=== PATIENT | male | born 1960 | race African-American/Black ===

== ENCOUNTER 2018-10-03 11:32 | Inpatient (IN) | payer OTHER ==
[2018-10-03 12:23] VITALS: BMI 25.8
--- NOTE | 2018-10-03 13:43 | HP ---
CIWA Score Nausea/Vomitin Muscle Tremors: 2 Anxiety: 2 Agitation: 2 Paroxysmal Sweats: 1-Minimal Palms Moist Orientation: 0-Oriented Tacttile Disturbances: 1-Very Mild Itch/Numbness Auditory Disturbances: 1-Very Mild Visual Disturbances: 0-None Headache: 2-Mild CIWA-Ar Total Score: 13 - Admission Criteria [facility]ASAS Guidelines: Admission for Medically Managed Detox: Requires at least one of the followin. CIWA greater than 12 2. Seizures within the past 24 hours 3. Delirium tremens within the past 24 hours 4. Hallucinations within the past 24 hours 5. Acute intervention needed for co occurring medical disorder 6. Acute intervention needed for co occurring psychiatric disorder 7. Severe withdrawal that cannot be handled at a lower level of care (continued vomiting, continued diarrhea, abnormal vital signs) requiring intravenous medication and/or fluids 8. Admission ROS [facility] - HPI Chief Complaint: i need help to stop drinking alcohol,heroin,on suboxone 8 mgs/2mgs tid Allergies/Adverse Reactions: Allergies Allergy/AdvReac Type Severity Reaction Status Date / Time No Known Allergies Allergy Verified 10/03/18 14:30 History of Present Illness: this 58 years old male with alcohol dependence,heroin abused,on suboxone 8mgs/2 mg tid , i stop showed last filled prescription 09/21/18 60 tab for 20 days syncope today hepatitis c since [address] [facility] this morning schizophrenia no medication last medication 18 months ago longest period of sobriety 10 years plan for out patient program after detox nicotine dependence 15 cigarette/day requesting nicotine patch and gum Exam Limitations: No Limitations - Ebola screening Have you traveled outside of the country in the last 21 days: No (N) Have you had contact with anyone from an Ebola affected area: No Have you been sick,other than usual withdrawal symptoms: No Do you have a fever: No - Review of Systems Constitutional: Night Sweats, Weight Stable, Unintentional Wgt. Loss, Unexplained wgt Loss, Other EENT: reports: Nose Congestion Respiratory: reports: No Symptoms reported Cardiac: reports: No Symptoms Reported GI: reports: Nausea, Poor Appetite, Abdominal cramping : reports: No Symptoms Reported Musculoskeletal: reports: Back Pain, Joint Pain, Muscle Pain Integumentary: reports: Dryness Neuro: reports: Headache, Tremors Endocrine: reports: No Symptoms Reported Hematology: reports: No Symptoms Reported Psychiatric: reports: No Sypmtoms Reported, Judgement Intact, Mood/Affect Appropiate, Orientated x3, Agitated, Anxious, other (schizophrenia) Patient History - Patient Medical History Hx Anemia: No Hx Asthma: No Hx Chronic Obstructive Pulmonary Disease (COPD): No Hx Cancer: No Hx Cardiac Disorders: No Hx Congestive Heart Failure: No Hx Hypertension: No Hx Hypercholesterolemia: No Hx Pacemaker: No HX Cerebrovascular Accident: No Hx Seizures: No Hx Dementia: No Hx Diabetes: No Hx Gastrointestinal Disorders: No Hx Liver Disease: No Hx Genitourinary Disorders: No Hx Sexually Transmitted Disorders: Yes (gonorrhea in 1979) Hx Renal Disease (ESRD): No Hx Thyroid Disease: No Hx Human Immunodeficiency Virus (HIV): No (last 2018 negative) Hx Hepatitis C: Yes Hx Depression: No Hx Suicide Attempt: No Hx Bipolar Disorder: No Hx Schizophrenia: Yes (no med) Other Medical History: no suicidal,no homicidal,low back pain sciatica,cane ambulation - Patient Surgical History Past Surgical History: Yes Hx Neurologic Surgery: No Hx Cataract Extraction: No Hx Cardiac Surgery: No Hx Lung Surgery: No Hx Breast Surgery: No Hx Breast Biopsy: No Hx Abdominal Surgery: No Hx Appendectomy: No Hx Cholecystectomy: No Hx Genitourinary Surgery: No Hx Section: No Hx Orthopedic Surgery: No Other Surgical History: repair of tendon of left thumb in 2009 unable to do flexion of left thumb Anesthesia Reaction: No - PPD History Previous Implant?: Yes Documented Results: Negative w/o proof Date: 07/08/13 Results: 0mm PPD to be Administered?: Yes - Smoking Cessation Smoking history: Current every day smoker Have you smoked in the past 12 months: Yes Aproximately how many cigarettes per day: 10 Cigars Per Day: 0 Hx Chewing Tobacco Use: No Initiated information on smoking cessation: Yes 'Breaking Loose' booklet given: 10/03/18 - Substance & Tx. History Hx Alcohol Use: Yes Hx Substance Use: Yes Substance Use Type: Alcohol, Heroin Hx Substance Use Treatment: Yes (arc in 2017) - Substances Abused Alcohol Route: Oral Frequency: Daily Amount used: 8 of 24 ozs of beer Age of first use: 14 Date of Last Use: 10/02/18 Heroin Route: Inhalation Frequency: Daily Amount used: 5 to 8 bags Age of first use: 20 Date of Last Use: 10/04/18 Family Disease History - Family Disease History Family Disease History: Other: Father (alcohol ) Admission Physical Exam [facility] - Vital Signs Vital Signs: Vital Signs - 24 hr 10/03/18 12:08 Temperature 98.6 F Pulse Rate 77 Respiratory 17 Rate Blood Pressure 125/77 - Physical General Appearance: Yes: Moderate Distress, Tremorous, Sweating, Anxious HEENTM: Yes: Normal ENT Inspection, HERLINDA, Pharynx Normal, Other (no teeth ,no denture) Respiratory: Yes: Lungs Clear, Normal Breath Sounds, No Respiratory Distress Neck: Yes: Within Normal Limits, Supple, Trachea in good position Breast: Yes: Within Normal Limits Cardiology: Yes: Within Normal Limits, Regular Rhythm, Regular Rate, S1, S2 Abdominal: Yes: Within Normal Limits, Normal Bowel Sounds, Non Tender, Soft Genitourinary: Yes: Within Normal Limits Musculoskeletal: Yes: Back pain, Other (low back pain scitica) Extremities: Yes: Tremors Neurological: Yes: furniture salesperson II-XII NML intact, Fully Oriented, Alert, Motor Strength 5/5 Integumentary: Yes: Dry Lymphatic: Yes: Within Normal Limits - Diagnostic (1) Alcohol dependence with uncomplicated withdrawal Current Visit: Yes Status: Acute (2) Heroin abuse Current Visit: Yes Status: Acute (3) Weight decreased Current Visit: No Status: Active (4) Hepatitis C Current Visit: Yes Status: Acute (5) Schizophrenia Current Visit: Yes Status: Acute (6) Encounter for monitoring Suboxone maintenance therapy Current Visit: Yes Status: Acute (7) Nicotine dependence Current Visit: Yes Status: Acute (8) No natural teeth Current Visit: Yes Status: Acute (9) Sciatica Current Visit: Yes Status: Acute (10) Use of cane as ambulatory aid Current Visit: Yes Status: Acute Cleared for Admission [facility] - Detox or Rehab [facility] Level of Care: Medically Managed Detox Regimen/Protocol: Librium [facility] Breath Alcohol Content Breath Alcohol Content: 0 Urine Drug Screen - Results Drug Screen Negative: No Urine Drug Screen Results: THC-Marijuana, TAMIKA-Cocaine, OPI-Opiates, MET- Methamphetamine, BZO-Benzodiazepines, MTD-Methadone, FEN-Fentanyl, BUP-Suboxone Inpatient Rehab Admission - Rehab Decision to Admit Inpatient rehab admission?: No
[2018-10-03] MEDS ORDERED: MAGNESIUM CITRATE 300 ML BOTTLE PO PRN (14:10)
[2018-10-03] MEDS ORDERED: hydrOXYzine PAMOATE 25 MG CAPSULE (FP) PO PRN (14:10)
[2018-10-03] MEDS ORDERED: MAGNESIUM HYDROX 2400MG/30ML ORAL SUSPENSION 30 ML CUP PO PRN (14:10)
[2018-10-03] MEDS ORDERED: MENTHOL/PHENOL 1 EACH UD MM PRN (14:10)
[2018-10-03] MEDS ORDERED: MAG HYDROX/AL HYDROX/SIMETH 30 ML UNIT-DOSE CUP PO PRN (14:10)
[2018-10-03] MEDS ORDERED: BISMUTH SUBSALICYLATE 524 MG/30 ML UD PO PRN (14:10)
[2018-10-03] MEDS ORDERED: IBUPROFEN 400 MG TABLET (FP) PO PRN (14:10)
[2018-10-03] MEDS ORDERED: ACETAMINOPHEN 325 MG TABLET (FP) PO PRN ×2 (14:10)
[2018-10-03] MEDS ORDERED: MELATONIN 5 MG TABLETS PO PRN (14:10)
[2018-10-03] MEDS ORDERED: chlordiazePOXIDE HCL 25 MG CAPSULE PO PRN (14:10)
[2018-10-03] MEDS ORDERED: NICOTINE POLACRILEX 2 MG GUM BUC PRN (14:10)
[2018-10-03] MEDS ORDERED: BISMUTH SUBSALICYLATE 262 MG/15 ML BTL PO PRN (15:49)
[2018-10-03] MEDS: NICOTINE 21 MG/24 HOURS TOPICAL PATCH TD SCH (16:11)
[2018-10-03] MEDS: chlordiazePOXIDE HCL 25 MG CAPSULE PO SCH ×2 (17:40→22:52)
[2018-10-03] MEDS: METHOCARBAMOL 500 MG TABLET PO PRN (20:31)
[2018-10-03] MEDS: THIAMINE HCL 100 MG TABLET (FP) PO SCH (22:52)
[2018-10-04] MEDS: BUPRENORPHINE/NALOXONE 8 MG/2 MG FILM PACKET SL SCH ×3 (05:42→22:17)
[2018-10-04] MEDS: chlordiazePOXIDE HCL 25 MG CAPSULE PO SCH ×4 (05:42→22:18)
[2018-10-04 09:57] LABS: HEMATOCRIT 34.6 % (35.4-49); HEMOGLOBIN 11.4 GM/dL (11.7-16.9); MCHC 32.9 g/dl (32.0-35.9); MEAN CELL VOLUME 91.3 fl (80-96); MEAN PLT VOLUME 11.4 fl (7.5-11.1); PLATELET COUNT 122 K/MM3 (134-434); RBC 3.79 M/mm3 (4.00-5.60); RDW 16.9 % (11.9-15.9); WHITE BLOOD COUNT 3.5 K/mm3 (4.0-10.0)
[2018-10-04] MEDS: PRENATAL VITAMINS W/ FOLIC ACID TABLET (FP) PO SCH (10:20)
[2018-10-04] MEDS: NICOTINE 21 MG/24 HOURS TOPICAL PATCH TD SCH (10:20)
[2018-10-04 10:32] LABS: ALK PHOS 73 U/L (45-117); ANION GAP 8 MMOL/L (8-16); BILIRUBIN,TOTAL 0.3 mg/dL (0.2-1); BLOOD UREA NITROGEN 14 mg/dL (7-18); CALCIUM 8.5 mg/dL (8.5-10.1); CHLORIDE 107 mmol/L (98-107); CO2 26 mmol/L (21-32); CREATININE 0.9 mg/dL (0.55-1.3); GLUCOSE,RANDOM 113 mg/dL (74-106); POTASSIUM 4.1 mmol/L (3.5-5.1); SGOT/AST 24 U/L (15-37); SGPT/ALT 33 U/L (13-61); SODIUM 140 mmol/L (136-145); TOT PROT 6.7 g/dl (6.4-8.2)
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
--- NOTE | 2018-10-04 12:18 | PN ---
[facility] CIWA - CIWA Score Nausea/Vomitin-No Nausea/No Vomiting Muscle Tremors: 1-None Visible, but [place] Anxiety: 1-Mildly Anxious Agitation: 2 Paroxysmal Sweats: 1-Minimal Palms Moist Orientation: 3-Disoriented Date>2 days Tacttile Disturbances: 0-None Auditory Disturbances: 0-None Visual Disturbances: 0-None Headache: 1-Very Mild CIWA-Ar Total Score: 9 S Progress Note (SOAP) Subjective: received suboxone tid today tremor sweating restlessness Objective: 10/04/18 12:19 Vital Signs Temperature 97.3 F L 10/04/18 09:09 Pulse Rate 75 10/04/18 09:09 Respiratory Rate 18 10/04/18 09:09 Blood Pressure 118/64 10/04/18 09:09 O2 Sat by Pulse Oximetry (%) Laboratory Last Values WBC 3.5 K/mm3 (4.0-10.0) L 10/04/18 07:40 RBC 3.79 M/mm3 (4.00-5.60) L 10/04/18 07:40 Hgb 11.4 GM/dL (11.7-16.9) L 10/04/18 07:40 Hct 34.6 % (35.4-49) L 10/04/18 07:40 MCV 91.3 fl (80-96) 10/04/18 07:40 MCH 30.0 pg (25.7-33.7) 10/04/18 07:40 MCHC 32.9 g/dl (32.0-35.9) 10/04/18 07:40 RDW 16.9 % (11.9-15.9) H 10/04/18 07:40 Plt Count 122 K/MM3 (134-434) L D 10/04/18 07:40 MPV 11.4 fl (7.5-11.1) H D 10/04/18 07:40 Sodium 140 mmol/L (136-145) 10/04/18 07:40 Potassium 4.1 mmol/L (3.5-5.1) 10/04/18 07:40 Chloride 107 mmol/L (98-107) 10/04/18 07:40 Carbon Dioxide 26 mmol/L (21-32) 10/04/18 07:40 Anion Gap 8 MMOL/L (8-16) 10/04/18 07:40 BUN 14 mg/dL (7-18) 10/04/18 07:40 Creatinine 0.9 mg/dL (0.55-1.3) 10/04/18 07:40 Creat Clearance w eGFR 87.29 (>60) 10/04/18 07:40 Random Glucose 113 mg/dL (74-106) H 10/04/18 07:40 Calcium 8.5 mg/dL (8.5-10.1) 10/04/18 07:40 Total Bilirubin 0.3 mg/dL (0.2-1) 10/04/18 07:40 AST 24 U/L (15-37) 10/04/18 07:40 ALT 33 U/L (13-61) 10/04/18 07:40 Alkaline Phosphatase 73 U/L (45-117) 10/04/18 07:40 Total Protein 6.7 g/dl (6.4-8.2) 10/04/18 07:40 Albumin 3.0 g/dl (3.4-5.0) L 10/04/18 07:40 lab noted Assessment: 10/04/18 12:19 withdrawal sx Plan: continue detox
[2018-10-04] MEDS: METHOCARBAMOL 500 MG TABLET PO PRN (13:51)
[2018-10-04] MEDS: THIAMINE HCL 100 MG TABLET (FP) PO SCH (22:17)
[2018-10-04] MEDS: QUEtiapine FUMARATE 100 MG TABLET (FP) PO SCH (22:18)
[2018-10-05] MEDS: BUPRENORPHINE/NALOXONE 8 MG/2 MG FILM PACKET SL SCH ×3 (07:02→22:37)
[2018-10-05] MEDS: chlordiazePOXIDE HCL 25 MG CAPSULE PO SCH ×2 (07:02→10:24)
[2018-10-05] MEDS: NICOTINE 21 MG/24 HOURS TOPICAL PATCH TD SCH (10:22)
[2018-10-05] MEDS: SERTRALINE HCL 50 MG TABLET (FP) PO SCH (10:22)
[2018-10-05] MEDS: QUEtiapine FUMARATE 50 MG TABLET PO SCH (10:22)
[2018-10-05] MEDS: PRENATAL VITAMINS W/ FOLIC ACID TABLET (FP) PO SCH (10:24)
--- NOTE | 2018-10-05 15:15 | PN ---
[facility] CIWA - CIWA Score Nausea/Vomitin-No Nausea/No Vomiting Muscle Tremors: 1-None Visible, but [place] Anxiety: 1-Mildly Anxious Agitation: 1-Slight > Activity Paroxysmal Sweats: No Perspiration Orientation: 1-Uncertain about Date Tacttile Disturbances: 0-None Auditory Disturbances: 0-None Visual Disturbances: 0-None Headache: 1-Very Mild CIWA-Ar Total Score: 5 S Progress Note (SOAP) Subjective: doing better today talking to staff about rehab and aftercare Objective: 10/05/18 15:14 Vital Signs Temperature 97.4 F L 10/05/18 13:42 Pulse Rate 79 10/05/18 13:42 Respiratory Rate 18 10/05/18 13:42 Blood Pressure 117/70 10/05/18 13:42 O2 Sat by Pulse Oximetry (%) Laboratory Last Values WBC 3.5 K/mm3 (4.0-10.0) L 10/04/18 07:40 RBC 3.79 M/mm3 (4.00-5.60) L 10/04/18 07:40 Hgb 11.4 GM/dL (11.7-16.9) L 10/04/18 07:40 Hct 34.6 % (35.4-49) L 10/04/18 07:40 MCV 91.3 fl (80-96) 10/04/18 07:40 MCH 30.0 pg (25.7-33.7) 10/04/18 07:40 MCHC 32.9 g/dl (32.0-35.9) 10/04/18 07:40 RDW 16.9 % (11.9-15.9) H 10/04/18 07:40 Plt Count 122 K/MM3 (134-434) L D 10/04/18 07:40 MPV 11.4 fl (7.5-11.1) H D 10/04/18 07:40 Sodium 140 mmol/L (136-145) 10/04/18 07:40 Potassium 4.1 mmol/L (3.5-5.1) 10/04/18 07:40 Chloride 107 mmol/L (98-107) 10/04/18 07:40 Carbon Dioxide 26 mmol/L (21-32) 10/04/18 07:40 Anion Gap 8 MMOL/L (8-16) 10/04/18 07:40 BUN 14 mg/dL (7-18) 10/04/18 07:40 Creatinine 0.9 mg/dL (0.55-1.3) 10/04/18 07:40 Creat Clearance w eGFR 87.29 (>60) 10/04/18 07:40 Random Glucose 113 mg/dL (74-106) H 10/04/18 07:40 Calcium 8.5 mg/dL (8.5-10.1) 10/04/18 07:40 Total Bilirubin 0.3 mg/dL (0.2-1) 10/04/18 07:40 AST 24 U/L (15-37) 10/04/18 07:40 ALT 33 U/L (13-61) 10/04/18 07:40 Alkaline Phosphatase 73 U/L (45-117) 10/04/18 07:40 Total Protein 6.7 g/dl (6.4-8.2) 10/04/18 07:40 Albumin 3.0 g/dl (3.4-5.0) L 10/04/18 07:40 RPR Titer Nonreactive (NONREACTIVE) 10/04/18 07:40 HIV 1&2 Antibody Screen Negative 10/04/18 07:40 HIV P24 Antigen Negative 10/04/18 07:40 lab noted Assessment: 10/05/18 15:15 withdrawal sx Plan: continue detox
[2018-10-05] MEDS ORDERED: chlordiazePOXIDE HCL 10 MG CAPSULE PO PRN (17:00)
[2018-10-05] MEDS: chlordiazePOXIDE HCL 10 MG CAPSULE PO SCH ×2 (17:34→22:37)
[2018-10-05] MEDS: METHOCARBAMOL 500 MG TABLET PO PRN (20:07)
[2018-10-05] MEDS: THIAMINE HCL 100 MG TABLET (FP) PO SCH (22:37)
[2018-10-05] MEDS: QUEtiapine FUMARATE 100 MG TABLET (FP) PO SCH (22:39)
[2018-10-06] MEDS: METHOCARBAMOL 500 MG TABLET PO PRN (03:45)
[2018-10-06] MEDS: BUPRENORPHINE/NALOXONE 8 MG/2 MG FILM PACKET SL SCH (05:53)
[2018-10-06] MEDS: chlordiazePOXIDE HCL 10 MG CAPSULE PO SCH ×2 (05:53→10:21)
[2018-10-06] MEDS: SERTRALINE HCL 50 MG TABLET (FP) PO SCH (10:20)
[2018-10-06] MEDS: NICOTINE 21 MG/24 HOURS TOPICAL PATCH TD SCH (10:20)
[2018-10-06] MEDS: QUEtiapine FUMARATE 50 MG TABLET PO SCH (10:20)
[2018-10-06] MEDS: PRENATAL VITAMINS W/ FOLIC ACID TABLET (FP) PO SCH (10:20)
--- NOTE | 2018-10-06 10:25 | DS ---
[facility] Detox Discharge Summary Admission Date: 10/03/18 Discharge Date: 10/06/18 - History Present History: Alcohol Dependence Additional Comments: 58 years old male admitted on 10/03/18 for alcohol withdrawal sx completed detox regimen [facility] - Physical Exam Results Vital Signs: Vital Signs Temperature 97.8 F 10/06/18 06:55 Pulse Rate 65 10/06/18 06:55 Respiratory Rate 18 10/06/18 06:55 Blood Pressure 122/76 10/06/18 06:55 O2 Sat by Pulse Oximetry (%) Pertinent Admission Physical Exam Findings: alcohol withdrawal sx Laboratory Last Values WBC 3.5 K/mm3 (4.0-10.0) L 10/04/18 07:40 RBC 3.79 M/mm3 (4.00-5.60) L 10/04/18 07:40 Hgb 11.4 GM/dL (11.7-16.9) L 10/04/18 07:40 Hct 34.6 % (35.4-49) L 10/04/18 07:40 MCV 91.3 fl (80-96) 10/04/18 07:40 MCH 30.0 pg (25.7-33.7) 10/04/18 07:40 MCHC 32.9 g/dl (32.0-35.9) 10/04/18 07:40 RDW 16.9 % (11.9-15.9) H 10/04/18 07:40 Plt Count 122 K/MM3 (134-434) L D 10/04/18 07:40 MPV 11.4 fl (7.5-11.1) H D 10/04/18 07:40 Sodium 140 mmol/L (136-145) 10/04/18 07:40 Potassium 4.1 mmol/L (3.5-5.1) 10/04/18 07:40 Chloride 107 mmol/L (98-107) 10/04/18 07:40 Carbon Dioxide 26 mmol/L (21-32) 10/04/18 07:40 Anion Gap 8 MMOL/L (8-16) 10/04/18 07:40 BUN 14 mg/dL (7-18) 10/04/18 07:40 Creatinine 0.9 mg/dL (0.55-1.3) 10/04/18 07:40 Creat Clearance w eGFR 87.29 (>60) 10/04/18 07:40 Random Glucose 113 mg/dL (74-106) H 10/04/18 07:40 Calcium 8.5 mg/dL (8.5-10.1) 10/04/18 07:40 Total Bilirubin 0.3 mg/dL (0.2-1) 10/04/18 07:40 AST 24 U/L (15-37) 10/04/18 07:40 ALT 33 U/L (13-61) 10/04/18 07:40 Alkaline Phosphatase 73 U/L (45-117) 10/04/18 07:40 Total Protein 6.7 g/dl (6.4-8.2) 10/04/18 07:40 Albumin 3.0 g/dl (3.4-5.0) L 10/04/18 07:40 RPR Titer Nonreactive (NONREACTIVE) 10/04/18 07:40 HIV 1&2 Antibody Screen Negative 10/04/18 07:40 HIV P24 Antigen Negative 10/04/18 07:40 lab noted - Treatment Hospital Course: Detox Protocol Followed, Detoxed Safely, Responded well, Discharged Condition Good, Rehab Referral Accepted - Medication Discharge Medications: Ambulatory Orders Quetiapine Fumarate [Seroquel -] 200 mg PO HS #30 tablet 01/03/14 Sertraline HCl [Zoloft -] 50 mg PO DAILY #30 tablet 01/03/14 - Diagnosis (1) Alcohol dependence with uncomplicated withdrawal Status: Acute (2) Encounter for monitoring Suboxone maintenance therapy Status: Chronic (3) Hepatitis C Status: Chronic Qualifiers: Viral hepatitis chronicity: unspecified Hepatic coma status: without hepatic coma Qualified Code(s): B19.20 - Unspecified viral hepatitis C without hepatic coma (4) Use of cane as ambulatory aid Status: Chronic (5) Nicotine dependence Status: Acute Qualifiers: Nicotine product type: cigarettes Substance use status: in withdrawal Qualified Code(s): F17.213 - Nicotine dependence, cigarettes, with withdrawal - AMA Did Patient Leave Against Medical Advice: No
[2018-10-06 10:29] VITALS: BP 117/85; PULSE 86; TEMP 98.5
[2018-10-06] MEDS ORDERED: chlordiazePOXIDE HCL 10 MG CAPSULE PO SCH (17:00)
== END 2018-10-06 11:28 | disposition home or self-care (01) | DRG 773 ==
LOC: YASAS 11:32 → Y3N 14:27
PROVIDERS: ADMIT Surgery; ATTEND Surgery
PROC: HZ2ZZZZ Detoxification Services for Substance Abuse Treatment (ICD-10-PCS; principal; 2018-10-03)
DX: F10.230 Alcohol dependence with withdrawal, uncomplicated (principal); F11.23 Opioid dependence with withdrawal; F14.20 Cocaine dependence, uncomplicated; F12.20 Cannabis dependence, uncomplicated; F17.213 Nicotine dependence, cigarettes, with withdrawal; F20.9 Schizophrenia, unspecified; B19.20 Unspecified viral hepatitis C without hepatic coma; G47.00 Insomnia, unspecified; M54.30 Sciatica, unspecified side; M54.5 Low back pain; G89.29 Other chronic pain; K00.0 Anodontia; Z51.81 Encounter for therapeutic drug level monitoring; R26.89 Other abnormalities of gait and mobility; Z91.19 Patient's noncompliance with other medical treatment and regimen
CPT/HCPCS: 36415; 80053; 85027; 86593; 87389

== ENCOUNTER 2019-08-23 13:56 | Inpatient (IN) | payer OTHER ==
[2019-08-23 17:18] VITALS: BMI 26.9
--- NOTE | 2019-08-23 19:16 | HP ---
CIWA Score - Admission Criteria OASAS Guidelines: Admission for Medically Managed Detox: Requires at least one of the followin. CIWA greater than 12 2. Seizures within the past 24 hours 3. Delirium tremens within the past 24 hours 4. Hallucinations within the past 24 hours 5. Acute intervention needed for co occurring medical disorder 6. Acute intervention needed for co occurring psychiatric disorder 7. Severe withdrawal that cannot be handled at a lower level of care (continued vomiting, continued diarrhea, abnormal vital signs) requiring intravenous medication and/or fluids 8. Admitting History and Physical - Admission Chief Complaint: "i'm here for rehab". History of Present Illness: A 59year old male with history of heroin, alcohol, cannabis use disorder, bipolar, and schizophrenia who presents here from [facility] inpatient psych unit requesting for rehab. Pt states he was admitted to the psych unit for 15days where he was started on suboxone 4mg/1mg film sl daily. Pt last detox here was on 10/03/2018 to 10/06/2018. Pt states he has been trying several times to remain sober but to no avail. Denies any depression or suicidal ideation at the moment. History Source: Patient Limitations to Obtaining History: No Limitations - Past Medical History Psych: Yes: Addictions, Bipolar, Schizophrenia - Smoking History Smoking history: Current every day smoker Have you smoked in the past 12 months: Yes Aproximately how many cigarettes per day: 10 - Alcohol/Substance Use Hx Alcohol Use: No History of Substance Use: reports: Heroin - Social History Usual Living Arrangement: Yes: Alone (fpc) Do you think of yourself as: Straight/Heterosexual ADL: Independent History of Recent Travel: No Admission [facility] Allergies/Adverse Reactions: Allergies Allergy/AdvReac Type Severity Reaction Status Date / Time No Known Allergies Allergy Verified 08/23/19 16:50 Exam Limitations: No Limitations - Ebola screening Have you traveled outside of the country in the last 21 days: No Have you had contact with anyone from an Ebola affected area: No Have you been sick,other than usual withdrawal symptoms: No Do you have a fever: No - Review of Systems Constitutional: No Symptoms Reported EENT: reports: Blurred Vision Respiratory: reports: No Symptoms reported Cardiac: reports: No Symptoms Reported GI: reports: No Symptoms Reported : reports: No Symptoms Reported Musculoskeletal: reports: Back Pain Integumentary: reports: No Symptoms Reported Neuro: reports: No Symptoms reported Endocrine: reports: No Symptoms Reported Hematology: reports: No Symptoms Reported Psychiatric: reports: Mood/Affect Appropiate Other Systems: Reviewed and Negative Patient History - Patient Medical History Hx Anemia: No Hx Asthma: No Hx Chronic Obstructive Pulmonary Disease (COPD): No Hx Cancer: No Hx Cardiac Disorders: No Hx Congestive Heart Failure: No Hx Hypertension: No Hx Hypercholesterolemia: No Hx Pacemaker: No HX Cerebrovascular Accident: No Hx Seizures: No Hx Dementia: No Hx Diabetes: No Hx Gastrointestinal Disorders: No Hx Liver Disease: No Hx Genitourinary Disorders: No Hx Sexually Transmitted Disorders: Yes (gonorrhea in 1979) Hx Renal Disease (ESRD): No Hx Thyroid Disease: No Hx Human Immunodeficiency Virus (HIV): No (last 2018 negative) Hx Hepatitis C: Yes Hx Depression: No Hx Suicide Attempt: No Hx Bipolar Disorder: Yes Hx Schizophrenia: Yes (no med) - Patient Surgical History Past Surgical History: Yes Hx Neurologic Surgery: No Hx Cataract Extraction: No Hx Cardiac Surgery: No Hx Lung Surgery: No Hx Breast Surgery: No Hx Breast Biopsy: No Hx Abdominal Surgery: No Hx Appendectomy: No Hx Cholecystectomy: No Hx Genitourinary Surgery: No Hx Section: No Hx Orthopedic Surgery: No Other Surgical History: repair of tendon of left thumb in 2009 unable to do flexion of left thumb Anesthesia Reaction: No - PPD History Previous Implant?: Yes Documented Results: Negative w/proof Date: 07/08/13 Results: 0mm PPD to be Administered?: Yes - Smoking Cessation Smoking history: Current every day smoker Have you smoked in the past 12 months: Yes Aproximately how many cigarettes per day: 10 Cigars Per Day: 0 Hx Chewing Tobacco Use: No Initiated information on smoking cessation: Yes 'Breaking Loose' booklet given: 08/23/19 - Substances abused Heroin Substance route: Inhalation Frequency: Daily Amount used: 6 bags Age of first use: 22 Date of last use: 08/16/19 Alcohol Substance route: Oral Frequency: Daily Amount used: liquor- 2 pints, beer- 2 six packs Age of first use: 14 Date of last use: 08/16/19 Marijuana/Hashish Substance route: Smoking Frequency: Daily Amount used: 7 blunts Age of first use: 14 Date of last use: 08/16/19 Admission Physical Exam [facility] - Vital Signs Vital Signs: Vital Signs - 24 hr 08/23/19 08/23/19 17:04 17:56 Temperature 97.9 F 97.9 F Pulse Rate 88 88 Respiratory 17 17 Rate Blood Pressure 128/76 128/76 - Physical General Appearance: Yes: No Apparent Distress HEENTM: Yes: EOMI, Hearing grossly Normal, HERLINDA, Tm's normal Respiratory: Yes: Chest Non-Tender, Lungs Clear, No Respiratory Distress Neck: Yes: No masses,lesions,Nodules Breast: Yes: Within Normal Limits Cardiology: Yes: Regular Rhythm, Regular Rate, S1, S2 Abdominal: Yes: Normal Bowel Sounds, Non Tender, Soft Genitourinary: Yes: Within Normal Limits Back: Yes: Normal Inspection Musculoskeletal: Yes: Back pain, Muscle Pain Extremities: Yes: Normal Capillary Refill, Non-Tender Neurological: Yes: Alert, Normal Mood/Affect, Normal Response Integumentary: Yes: Dry, Warm Lymphatic: Yes: Within Normal Limits - Diagnostic (1) Heroin abuse Current Visit: No Status: Chronic (2) Nicotine dependence Current Visit: No Status: Chronic Qualifiers: Nicotine product type: cigarettes Substance use status: in withdrawal Qualified Code(s): F17.213 - Nicotine dependence, cigarettes, with withdrawal (3) Sciatica Current Visit: No Status: Chronic (4) Opioid dependence Current Visit: No Status: Chronic (5) Schizophrenia Current Visit: No Status: Chronic Cleared for Admission [facility] - Detox or Rehab Claeared for Rehab Admission: Yes Breathalyzer - Breathalyzer Breathalyzer: 0 Urine Drug Screen - Test Device Lot number: [id number] Expiration date: 08/23/19 - Control Is test valid?: Yes - Results Drug screen NEGATIVE: No Urine drug screen results: BUP-Suboxone Inpatient Rehab Admission - Rehab Decision to Admit Inpatient rehab admission?: Yes - Initial Determination Are CD services needed?: Yes Free of communicable disease: Yes Not in need of hospitalization: Yes - Rehab Admission Criteria Previous failed treatment: Yes Poor recovery environment: Yes Comorbidities: Yes Lacks judgement: Yes Patient is meeting Inpatient Rehab admission criteria:: Yes
[2019-08-23] MEDS ORDERED: P-EPHED 60MG/TRIPROLIDI 2.5MG TABLET PO PRN (19:24)
[2019-08-23] MEDS ORDERED: MAG HYDROX/AL HYDROX/SIMETH 30 ML UNIT-DOSE CUP PO PRN (19:24)
[2019-08-23] MEDS ORDERED: MAGNESIUM CITRATE 300 ML BOTTLE PO PRN (19:24)
[2019-08-23] MEDS ORDERED: LOPERAMIDE HCL 2 MG CAPSULE PO PRN (19:24)
[2019-08-23] MEDS ORDERED: MENTHOL/PHENOL 1 EACH UD MM PRN (19:24)
[2019-08-23] MEDS ORDERED: guaiFENesin 200 MG/10 ML 10 ML UNIT-DOSE CUPS PO PRN (19:24)
[2019-08-23] MEDS ORDERED: MAGNESIUM HYDROX 2400MG/30ML ORAL SUSPENSION 30 ML CUP PO PRN (19:24)
[2019-08-23] MEDS ORDERED: ACETAMINOPHEN 325 MG TABLET (FP) PO PRN (19:24)
[2019-08-23] MEDS ORDERED: IBUPROFEN 400 MG TABLET (FP) PO PRN (19:24)
[2019-08-23] MEDS: THIAMINE HCL 100 MG TABLET (FP) PO SCH (21:30)
[2019-08-23] MEDS ORDERED: TUBERCULIN PPD 5 TU/0.1ML VIAL ID ONE (21:58)
[2019-08-23] MEDS ORDERED: MELATONIN 5 MG TABLETS PO PRN (22:00)
[2019-08-24] MEDS: LIDOCAINE PATCH REMOVAL MC SCH ×2 (00:08→21:26)
[2019-08-24 09:59] LABS: HEMOGLOBIN 11.4 GM/dL (11.7-16.9); MCH 29.3 pg (25.7-33.7); MCHC 31.7 g/dl (32.0-35.9); MEAN CELL VOLUME 92.5 fl (80-96); MEAN PLT VOLUME 11.7 fl (7.5-11.1); RBC 3.89 M/mm3 (4.00-5.60); RDW 17.6 % (11.9-15.9); WHITE BLOOD COUNT 4.7 K/mm3 (4.0-10.0)
[2019-08-24 10:11] LABS: ALBUMIN 3.1 g/dl (3.4-5.0); BILIRUBIN,TOTAL 0.3 mg/dL (0.2-1); BLOOD UREA NITROGEN 15.9 mg/dL (7-18); CALCIUM 8.5 mg/dL (8.5-10.1); CREATININE 0.8 mg/dL (0.55-1.3); TOT PROT 6.9 g/dl (6.4-8.2)
[2019-08-24] MEDS: LIDOCAINE 5% TOPICAL PATCH TP SCH (10:33)
[2019-08-24] MEDS: PRENATAL VITAMINS W/ FOLIC ACID TABLET (FP) PO SCH (10:33)
[2019-08-24] MEDS: NICOTINE 14 MG/24 HOURS TOPICAL PATCH TD SCH (10:33)
[2019-08-24] MEDS: NICOTINE POLACRILEX 2 MG GUM BC PRN (10:36)
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
--- NOTE | 2019-08-24 14:56 | PN ---
[facility] Progress Note Note: Pt is a 59 y/o male with a hx of SIM admitted to rehab [address] [place] [address] through [facility]. pt reports he is on Suboxone MAT 4 mg/1 mg sl daily(see RECYCLING DIRECTOR verification below). PMHx: Bleeding Hemorroids. Psych Hx:Bipolar d/o. Pt reports he has GI appointment on 08/29/19([facility]) "but will need to reschedule since I'm here". Reports he saw the doctor on 08/22/19 before coming here on . Pt reports he was discharged from [facility] before coming here and he brought all his medications with him including Suboxone Rx which he picked up yesterday and has not touched it yet. Others' Prescriptions Patient Name: Beto Collins Date: 1960 Address: [address] [place] [address] Sex: Male Rx Written Rx Dispensed Drug Quantity Days Supply Prescriber Name 08/23/2019 08/23/2019 buprenorphine-naloxone 4-1 mg sl film 14 14 Haris Coffman MD Patient Name: Beto Collins Date: 1960 Address: [id number] [address] Sex: Male Rx Written Rx Dispensed Drug Quantity Days Supply Prescriber Name 09/21/2018 09/21/2018 buprenorphine-naloxone 8-2 mg sl tablet 60 20 MD Krishnan Mario Vital Signs - 24 hr 08/23/19 08/23/19 08/23/19 17:04 17:56 18:23 Temperature 97.9 F 97.9 F 98.9 F Pulse Rate 88 88 76 Respiratory 17 17 18 Rate Blood Pressure 128/76 128/76 130/75 08/24/19 08/24/19 08/24/19 00:30 03:30 07:37 Temperature 98.2 F Pulse Rate 62 Respiratory 20 18 18 Rate Blood Pressure 123/69 Laboratory Tests 08/23/19 08/23/19 08/23/19 06:00 06:00 06:00 WBC 4.7 RBC 3.89 L Hgb 11.4 L Hct 36.0 MCV 92.5 MCH 29.3 MCHC 31.7 L RDW 17.6 H Plt Count No Result Required. MPV 11.7 H Platelet Comment Slt plt clumping Sodium 139 Potassium 4.0 Chloride 106 Carbon Dioxide 26 Anion Gap 7 L BUN 15.9 Creatinine 0.8 Est GFR (CKD-EPI)AfAm 114.93 Est GFR (CKD-EPI)NonAf 99.16 Random Glucose 144 H Calcium 8.5 Total Bilirubin 0.3 AST 40 H ALT 69 H Alkaline Phosphatase 69 Total Protein 6.9 Albumin 3.1 L RPR Titer Nonreactive Alert o x 3 nad oob ambulating with steady gait extremities/skin:slight feet edema;skin intact. A/P new rehab pt SIM hx Hemorrhoids,bleeding Maintain safety cont rehab Reorder suboxone 4 mg/1mg sl daily. give first dose today. increase po fluids Colace 300 mg po HS Tucks wipes prn Anusol HC cream 2.5% topical as directed.
[2019-08-24] MEDS ORDERED: WITCH HAZEL 50% (TUCKS) 40 PAD/JAR PAD TP PRN (15:05)
[2019-08-24] MEDS: LITHIUM CARBONATE 300 MG CAPSULE (FP) PO SCH ×2 (15:09→21:25)
[2019-08-24] MEDS ORDERED: BUPRENORPHINE/NALOXONE 4 MG/1 MG FILM PACKET SL ONE (15:40)
[2019-08-24] MEDS: FUROSEMIDE 20 MG TABLET (FP) PO SCH (16:06)
[2019-08-24 18:37] LABS: PH,URINE 6.5 (5.0-8.0); URINE APPEARANCE CLEAR; URINE BILIRUBIN NEGATIVE (NEGATIVE); URINE COLOR YELLOW; URINE GLUCOSE (UA) NEGATIVE (NEGATIVE); URINE KETONE NEGATIVE (NEGATIVE); URINE LEUK ESTERASE NEGATIVE (NEGATIVE); URINE NITRITE NEGATIVE (NEGATIVE); URINE PROTEIN NEGATIVE (NEGATIVE)
[2019-08-24] MEDS: DOCUSATE SODIUM 100 MG CAPSULE (FP) PO SCH (21:25)
[2019-08-24] MEDS: THIAMINE HCL 100 MG TABLET (FP) PO SCH (21:26)
[2019-08-24] MEDS: OLANZapine 10 MG TABLET PO SCH (21:26)
[2019-08-24] MEDS: HYDROCORTISONE 2.5% TOPICAL CREAM 30 GM TUBE RC SCH (21:26)
[2019-08-24] MEDS: MELATONIN 5 MG TABLETS PO PRN (21:27)
[2019-08-25] MEDS: PRENATAL VITAMINS W/ FOLIC ACID TABLET (FP) PO SCH (11:03)
[2019-08-25] MEDS: LITHIUM CARBONATE 300 MG CAPSULE (FP) PO SCH ×2 (11:03→21:25)
[2019-08-25] MEDS: FUROSEMIDE 20 MG TABLET (FP) PO SCH (11:03)
[2019-08-25] MEDS: HYDROCORTISONE 2.5% TOPICAL CREAM 30 GM TUBE RC SCH ×2 (11:04→21:26)
[2019-08-25] MEDS: BUPRENORPHINE/NALOXONE 4 MG/1 MG FILM PACKET SL SCH (11:06)
[2019-08-25] MEDS: NICOTINE 14 MG/24 HOURS TOPICAL PATCH TD SCH (11:09)
[2019-08-25] MEDS: LIDOCAINE 5% TOPICAL PATCH TP SCH (11:09)
[2019-08-25] MEDS: DOCUSATE SODIUM 100 MG CAPSULE (FP) PO SCH (21:24)
[2019-08-25] MEDS: THIAMINE HCL 100 MG TABLET (FP) PO SCH (21:24)
[2019-08-25] MEDS: OLANZapine 10 MG TABLET PO SCH (21:25)
[2019-08-25] MEDS: MELATONIN 5 MG TABLETS PO PRN (21:25)
[2019-08-25] MEDS: LIDOCAINE PATCH REMOVAL MC SCH (21:27)
[2019-08-26] MEDS: LIDOCAINE 5% TOPICAL PATCH TP SCH (10:29)
[2019-08-26] MEDS: BUPRENORPHINE/NALOXONE 4 MG/1 MG FILM PACKET SL SCH (10:29)
[2019-08-26] MEDS: PRENATAL VITAMINS W/ FOLIC ACID TABLET (FP) PO SCH (10:29)
[2019-08-26] MEDS: NICOTINE 14 MG/24 HOURS TOPICAL PATCH TD SCH (10:29)
[2019-08-26] MEDS: FUROSEMIDE 20 MG TABLET (FP) PO SCH (10:29)
[2019-08-26] MEDS: LITHIUM CARBONATE 300 MG CAPSULE (FP) PO SCH ×2 (10:29→21:27)
[2019-08-26] MEDS: HYDROCORTISONE 2.5% TOPICAL CREAM 30 GM TUBE RC SCH ×2 (10:30→21:29)
[2019-08-26] MEDS: NICOTINE POLACRILEX 2 MG GUM BC PRN ×2 (10:33→21:51)
[2019-08-26 12:07] LABS: HEMATOCRIT 35.7 % (35.4-49); HEMOGLOBIN 11.4 GM/dL (11.7-16.9); MCH 29.5 pg (25.7-33.7); MCHC 31.9 g/dl (32.0-35.9); MEAN CELL VOLUME 92.5 fl (80-96); MEAN PLT VOLUME 10.9 fl (7.5-11.1); RBC 3.86 M/mm3 (4.00-5.60); RDW 17.3 % (11.9-15.9); WHITE BLOOD COUNT 3.6 K/mm3 (4.0-10.0)
[2019-08-26 12:17] LABS: ALBUMIN 3.2 g/dl (3.4-5.0); BILIRUBIN,TOTAL 0.4 mg/dL (0.2-1); BLOOD UREA NITROGEN 16.6 mg/dL (7-18); CALCIUM 8.7 mg/dL (8.5-10.1); CREATININE 0.8 mg/dL (0.55-1.3); POTASSIUM 3.9 mmol/L (3.5-5.1)
--- NOTE | 2019-08-26 14:26 | PN ---
[facility] Progress Note Note: lab review Laboratory Tests 08/23/19 08/23/19 08/23/19 06:00 06:00 06:00 WBC 4.7 RBC 3.89 L Hgb 11.4 L Hct 36.0 MCV 92.5 MCH 29.3 MCHC 31.7 L RDW 17.6 H Plt Count No Result Required. MPV 11.7 H Manual Slide Review Platelet Comment Slt plt clumping Sodium 139 Potassium 4.0 Chloride 106 Carbon Dioxide 26 Anion Gap 7 L BUN 15.9 Creatinine 0.8 Est GFR (CKD-EPI)AfAm 114.93 Est GFR (CKD-EPI)NonAf 99.16 Random Glucose 144 H Calcium 8.5 Total Bilirubin 0.3 AST 40 H ALT 69 H Alkaline Phosphatase 69 Total Protein 6.9 Albumin 3.1 L Urine Color Urine Appearance Urine pH Ur Specific [place] Urine Protein Urine Glucose (UA) Urine Ketones Urine Blood Urine Nitrite Urine Bilirubin Urine Urobilinogen Ur Leukocyte Esterase RPR Titer Nonreactive 08/24/19 08/26/19 08/26/19 16:09 08:25 08:25 WBC 3.6 L RBC 3.86 L Hgb 11.4 L Hct 35.7 MCV 92.5 MCH 29.5 MCHC 31.9 L RDW 17.3 H Plt Count No Result Required. MPV 10.9 Manual Slide Review Plts.appear adq on s Platelet Comment Slt plt clumping Sodium 141 Potassium 3.9 Chloride 108 H Carbon Dioxide 27 Anion Gap 5 L BUN 16.6 Creatinine 0.8 Est GFR (CKD-EPI)AfAm 114.93 Est GFR (CKD-EPI)NonAf 99.16 Random Glucose 135 H Calcium 8.7 Total Bilirubin 0.4 AST 40 H ALT 75 H Alkaline Phosphatase 72 Total Protein 7.0 Albumin 3.2 L Urine Color Yellow Urine Appearance Clear Urine pH 6.5 Ur Specific [place] 1.021 Urine Protein Negative Urine Glucose (UA) Negative Urine Ketones Negative Urine Blood Negative Urine Nitrite Negative Urine Bilirubin Negative Urine Urobilinogen 1.0 Ur Leukocyte Esterase Negative RPR Titer Vital Signs - 24 hr 08/26/19 08/26/19 08/26/19 00:30 03:30 07:46 Temperature 98.0 F Pulse Rate 63 Respiratory 18 18 18 Rate Blood Pressure 111/69 elevated Glc FBS x 2 days as directed. pt was seen today by Dietitian.
[2019-08-26] MEDS: LIDOCAINE PATCH REMOVAL MC SCH (21:27)
[2019-08-26] MEDS: DOCUSATE SODIUM 100 MG CAPSULE (FP) PO SCH (21:27)
[2019-08-26] MEDS: MELATONIN 5 MG TABLETS PO PRN (21:27)
[2019-08-26] MEDS: THIAMINE HCL 100 MG TABLET (FP) PO SCH (21:27)
[2019-08-26] MEDS: OLANZapine 10 MG TABLET PO SCH (21:27)
[2019-08-27] MEDS: FERROUS SO4 325 MG TABLET (FP) PO SCH (10:14)
[2019-08-27] MEDS: PRENATAL VITAMINS W/ FOLIC ACID TABLET (FP) PO SCH (10:14)
[2019-08-27] MEDS: NICOTINE 14 MG/24 HOURS TOPICAL PATCH TD SCH (10:14)
[2019-08-27] MEDS: LITHIUM CARBONATE 300 MG CAPSULE (FP) PO SCH ×2 (10:14→21:30)
[2019-08-27] MEDS: FUROSEMIDE 20 MG TABLET (FP) PO SCH (10:14)
[2019-08-27] MEDS: LIDOCAINE 5% TOPICAL PATCH TP SCH (10:14)
[2019-08-27] MEDS: NICOTINE POLACRILEX 2 MG GUM BC PRN (10:15)
[2019-08-27] MEDS: BUPRENORPHINE/NALOXONE 4 MG/1 MG FILM PACKET SL SCH (10:17)
[2019-08-27] MEDS: HYDROCORTISONE 2.5% TOPICAL CREAM 30 GM TUBE RC SCH ×2 (13:13→21:32)
[2019-08-27] MEDS: OLANZapine 10 MG TABLET PO SCH (21:30)
[2019-08-27] MEDS: THIAMINE HCL 100 MG TABLET (FP) PO SCH (21:30)
[2019-08-27] MEDS: DOCUSATE SODIUM 100 MG CAPSULE (FP) PO SCH (21:30)
[2019-08-27] MEDS: MELATONIN 5 MG TABLETS PO PRN (21:31)
[2019-08-27] MEDS: LIDOCAINE PATCH REMOVAL MC SCH (21:31)
[2019-08-28] MEDS: NICOTINE POLACRILEX 2 MG GUM BC PRN ×2 (06:57→10:01)
[2019-08-28] MEDS: PRENATAL VITAMINS W/ FOLIC ACID TABLET (FP) PO SCH (10:00)
[2019-08-28] MEDS: LITHIUM CARBONATE 300 MG CAPSULE (FP) PO SCH ×2 (10:00→21:22)
[2019-08-28] MEDS: FUROSEMIDE 20 MG TABLET (FP) PO SCH (10:00)
[2019-08-28] MEDS: FERROUS SO4 325 MG TABLET (FP) PO SCH (10:00)
[2019-08-28] MEDS: LIDOCAINE 5% TOPICAL PATCH TP SCH (10:00)
[2019-08-28] MEDS: NICOTINE 14 MG/24 HOURS TOPICAL PATCH TD SCH (10:01)
[2019-08-28] MEDS: BUPRENORPHINE/NALOXONE 4 MG/1 MG FILM PACKET SL SCH (10:03)
[2019-08-28] MEDS: HYDROCORTISONE 2.5% TOPICAL CREAM 30 GM TUBE RC SCH ×2 (10:03→21:24)
[2019-08-28] MEDS: OLANZapine 10 MG TABLET PO SCH (21:22)
[2019-08-28] MEDS: MELATONIN 5 MG TABLETS PO PRN (21:22)
[2019-08-28] MEDS: DOCUSATE SODIUM 100 MG CAPSULE (FP) PO SCH (21:22)
[2019-08-28] MEDS: THIAMINE HCL 100 MG TABLET (FP) PO SCH (21:22)
[2019-08-28] MEDS: LIDOCAINE PATCH REMOVAL MC SCH (21:23)
[2019-08-29] MEDS: LITHIUM CARBONATE 300 MG CAPSULE (FP) PO SCH ×2 (10:18→21:24)
[2019-08-29] MEDS: NICOTINE 14 MG/24 HOURS TOPICAL PATCH TD SCH (10:18)
[2019-08-29] MEDS: FERROUS SO4 325 MG TABLET (FP) PO SCH (10:18)
[2019-08-29] MEDS: FUROSEMIDE 20 MG TABLET (FP) PO SCH (10:18)
[2019-08-29] MEDS: PRENATAL VITAMINS W/ FOLIC ACID TABLET (FP) PO SCH (10:18)
[2019-08-29] MEDS: NICOTINE POLACRILEX 2 MG GUM BC PRN (10:19)
[2019-08-29] MEDS: BUPRENORPHINE/NALOXONE 4 MG/1 MG FILM PACKET SL SCH (10:21)
[2019-08-29] MEDS: HYDROCORTISONE 2.5% TOPICAL CREAM 30 GM TUBE RC SCH ×2 (11:33→21:23)
[2019-08-29] MEDS: LIDOCAINE 5% TOPICAL PATCH TP SCH (11:35)
--- NOTE | 2019-08-29 18:34 | PN ---
[facility] Progress Note Note: Pt c/o chronic feet edema. On Lasix 20 mg po daily. Vital Signs - 24 hr 08/29/19 08/29/19 08/29/19 00:30 03:30 05:30 Temperature 98 F Pulse Rate 60 Respiratory 18 18 18 Rate Blood Pressure 131/80 08/29/19 10:00 Temperature Pulse Rate 71 Respiratory Rate Blood Pressure 114/62 Alert o x3 nad oob ambulating with steady gait extremities/skin:bilateral edema,+1 pitting;skin intact.(Edema unchanged from admission). A/P Chronic Peripheral Edema Elevate both legs on a wedge Compression Stockings as directed.
[2019-08-29] MEDS: DOCUSATE SODIUM 100 MG CAPSULE (FP) PO SCH (21:24)
[2019-08-29] MEDS: OLANZapine 10 MG TABLET PO SCH (21:24)
[2019-08-29] MEDS: THIAMINE HCL 100 MG TABLET (FP) PO SCH (21:25)
[2019-08-29] MEDS: LIDOCAINE PATCH REMOVAL MC SCH (21:25)
[2019-08-29] MEDS: MELATONIN 5 MG TABLETS PO PRN (21:26)
[2019-08-30] MEDS: FUROSEMIDE 20 MG TABLET (FP) PO SCH (10:06)
[2019-08-30] MEDS: PRENATAL VITAMINS W/ FOLIC ACID TABLET (FP) PO SCH (10:06)
[2019-08-30] MEDS: FERROUS SO4 325 MG TABLET (FP) PO SCH (10:06)
[2019-08-30] MEDS: BUPRENORPHINE/NALOXONE 4 MG/1 MG FILM PACKET SL SCH (10:06)
[2019-08-30] MEDS: NICOTINE 14 MG/24 HOURS TOPICAL PATCH TD SCH (10:06)
[2019-08-30] MEDS: LITHIUM CARBONATE 300 MG CAPSULE (FP) PO SCH ×2 (10:06→21:31)
[2019-08-30] MEDS: HYDROCORTISONE 2.5% TOPICAL CREAM 30 GM TUBE RC SCH ×2 (10:07→21:32)
[2019-08-30] MEDS: LIDOCAINE 5% TOPICAL PATCH TP SCH (10:07)
[2019-08-30] MEDS: NICOTINE POLACRILEX 2 MG GUM BC PRN (10:09)
[2019-08-30] MEDS: THIAMINE HCL 100 MG TABLET (FP) PO SCH (21:31)
[2019-08-30] MEDS: MELATONIN 5 MG TABLETS PO PRN (21:31)
[2019-08-30] MEDS: DOCUSATE SODIUM 100 MG CAPSULE (FP) PO SCH (21:31)
[2019-08-30] MEDS: OLANZapine 10 MG TABLET PO SCH (21:31)
[2019-08-30] MEDS: LIDOCAINE PATCH REMOVAL MC SCH (22:01)
[2019-08-31] MEDS: FERROUS SO4 325 MG TABLET (FP) PO SCH (10:19)
[2019-08-31] MEDS: FUROSEMIDE 20 MG TABLET (FP) PO SCH (10:19)
[2019-08-31] MEDS: LITHIUM CARBONATE 300 MG CAPSULE (FP) PO SCH ×2 (10:19→21:28)
[2019-08-31] MEDS: PRENATAL VITAMINS W/ FOLIC ACID TABLET (FP) PO SCH (10:19)
[2019-08-31] MEDS: BUPRENORPHINE/NALOXONE 4 MG/1 MG FILM PACKET SL SCH (10:19)
[2019-08-31] MEDS: NICOTINE 14 MG/24 HOURS TOPICAL PATCH TD SCH (10:19)
[2019-08-31] MEDS: LIDOCAINE 5% TOPICAL PATCH TP SCH (10:20)
[2019-08-31] MEDS: HYDROCORTISONE 2.5% TOPICAL CREAM 30 GM TUBE RC SCH ×2 (10:21→21:30)
[2019-08-31] MEDS: NICOTINE POLACRILEX 2 MG GUM BC PRN (15:02)
[2019-08-31] MEDS: DOCUSATE SODIUM 100 MG CAPSULE (FP) PO SCH (21:26)
[2019-08-31] MEDS: OLANZapine 10 MG TABLET PO SCH (21:27)
[2019-08-31] MEDS: THIAMINE HCL 100 MG TABLET (FP) PO SCH (21:28)
[2019-08-31] MEDS: MELATONIN 5 MG TABLETS PO PRN (21:28)
[2019-08-31] MEDS: LIDOCAINE PATCH REMOVAL MC SCH (21:32)
[2019-09-01] MEDS: PRENATAL VITAMINS W/ FOLIC ACID TABLET (FP) PO SCH (09:20)
[2019-09-01] MEDS: FERROUS SO4 325 MG TABLET (FP) PO SCH (09:20)
[2019-09-01] MEDS: LITHIUM CARBONATE 300 MG CAPSULE (FP) PO SCH ×2 (09:20→21:14)
[2019-09-01] MEDS: FUROSEMIDE 20 MG TABLET (FP) PO SCH (09:20)
[2019-09-01] MEDS: NICOTINE 14 MG/24 HOURS TOPICAL PATCH TD SCH (09:21)
[2019-09-01] MEDS: LIDOCAINE 5% TOPICAL PATCH TP SCH (09:21)
[2019-09-01] MEDS: HYDROCORTISONE 2.5% TOPICAL CREAM 30 GM TUBE RC SCH ×2 (09:21→21:14)
[2019-09-01] MEDS: BUPRENORPHINE/NALOXONE 4 MG/1 MG FILM PACKET SL SCH (09:23)
[2019-09-01] MEDS: NICOTINE POLACRILEX 2 MG GUM BC PRN ×2 (12:45→16:36)
[2019-09-01] MEDS: OLANZapine 10 MG TABLET PO SCH (21:14)
[2019-09-01] MEDS: DOCUSATE SODIUM 100 MG CAPSULE (FP) PO SCH (21:14)
[2019-09-01] MEDS: LIDOCAINE PATCH REMOVAL MC SCH (21:15)
[2019-09-01] MEDS: THIAMINE HCL 100 MG TABLET (FP) PO SCH (21:15)
[2019-09-01] MEDS: MELATONIN 5 MG TABLETS PO PRN (21:16)
[2019-09-02] MEDS: LIDOCAINE 5% TOPICAL PATCH TP SCH (09:40)
[2019-09-02] MEDS: FERROUS SO4 325 MG TABLET (FP) PO SCH (09:40)
[2019-09-02] MEDS: PRENATAL VITAMINS W/ FOLIC ACID TABLET (FP) PO SCH (09:40)
[2019-09-02] MEDS: LITHIUM CARBONATE 300 MG CAPSULE (FP) PO SCH ×2 (09:40→21:15)
[2019-09-02] MEDS: FUROSEMIDE 20 MG TABLET (FP) PO SCH (09:40)
[2019-09-02] MEDS: NICOTINE POLACRILEX 2 MG GUM BC PRN ×2 (09:41→20:13)
[2019-09-02] MEDS: HYDROCORTISONE 2.5% TOPICAL CREAM 30 GM TUBE RC SCH ×2 (09:41→21:18)
[2019-09-02] MEDS: BUPRENORPHINE/NALOXONE 4 MG/1 MG FILM PACKET SL SCH (09:43)
[2019-09-02] MEDS: NICOTINE 14 MG/24 HOURS TOPICAL PATCH TD SCH (10:27)
[2019-09-02] MEDS: DOCUSATE SODIUM 100 MG CAPSULE (FP) PO SCH (21:15)
[2019-09-02] MEDS: OLANZapine 10 MG TABLET PO SCH (21:15)
[2019-09-02] MEDS: THIAMINE HCL 100 MG TABLET (FP) PO SCH (21:15)
[2019-09-02] MEDS: MELATONIN 5 MG TABLETS PO PRN (21:16)
[2019-09-02] MEDS: LIDOCAINE PATCH REMOVAL MC SCH (21:56)
[2019-09-03] MEDS: NICOTINE POLACRILEX 2 MG GUM BC PRN ×3 (07:43→20:11)
[2019-09-03] MEDS: LITHIUM CARBONATE 300 MG CAPSULE (FP) PO SCH ×2 (10:20→21:37)
[2019-09-03] MEDS: FUROSEMIDE 20 MG TABLET (FP) PO SCH (10:20)
[2019-09-03] MEDS: BUPRENORPHINE/NALOXONE 4 MG/1 MG FILM PACKET SL SCH (10:20)
[2019-09-03] MEDS: PRENATAL VITAMINS W/ FOLIC ACID TABLET (FP) PO SCH (10:20)
[2019-09-03] MEDS: FERROUS SO4 325 MG TABLET (FP) PO SCH (10:20)
[2019-09-03] MEDS: NICOTINE 14 MG/24 HOURS TOPICAL PATCH TD SCH (10:21)
[2019-09-03] MEDS: HYDROCORTISONE 2.5% TOPICAL CREAM 30 GM TUBE RC SCH ×2 (10:22→21:39)
[2019-09-03] MEDS: LIDOCAINE 5% TOPICAL PATCH TP SCH (10:22)
[2019-09-03] MEDS: OLANZapine 10 MG TABLET PO SCH (21:37)
[2019-09-03] MEDS: DOCUSATE SODIUM 100 MG CAPSULE (FP) PO SCH (21:37)
[2019-09-03] MEDS: LIDOCAINE PATCH REMOVAL MC SCH (21:38)
[2019-09-03] MEDS: THIAMINE HCL 100 MG TABLET (FP) PO SCH (21:38)
[2019-09-03] MEDS: MELATONIN 5 MG TABLETS PO PRN (21:38)
[2019-09-04] MEDS: LIDOCAINE 5% TOPICAL PATCH TP SCH (09:52)
[2019-09-04] MEDS: BUPRENORPHINE/NALOXONE 4 MG/1 MG FILM PACKET SL SCH (09:52)
[2019-09-04] MEDS: FERROUS SO4 325 MG TABLET (FP) PO SCH (09:52)
[2019-09-04] MEDS: LITHIUM CARBONATE 300 MG CAPSULE (FP) PO SCH ×2 (09:52→21:11)
[2019-09-04] MEDS: FUROSEMIDE 20 MG TABLET (FP) PO SCH (09:52)
[2019-09-04] MEDS: PRENATAL VITAMINS W/ FOLIC ACID TABLET (FP) PO SCH (09:52)
[2019-09-04] MEDS: HYDROCORTISONE 2.5% TOPICAL CREAM 30 GM TUBE RC SCH ×2 (09:53→21:12)
[2019-09-04] MEDS: NICOTINE 14 MG/24 HOURS TOPICAL PATCH TD SCH (09:53)
[2019-09-04] MEDS: NICOTINE POLACRILEX 2 MG GUM BC PRN ×2 (20:12→22:46)
[2019-09-04] MEDS: THIAMINE HCL 100 MG TABLET (FP) PO SCH (21:11)
[2019-09-04] MEDS: OLANZapine 10 MG TABLET PO SCH (21:11)
[2019-09-04] MEDS: MELATONIN 5 MG TABLETS PO PRN (21:11)
[2019-09-04] MEDS: DOCUSATE SODIUM 100 MG CAPSULE (FP) PO SCH (21:11)
[2019-09-04] MEDS: LIDOCAINE PATCH REMOVAL MC SCH (21:12)
[2019-09-05] MEDS: FERROUS SO4 325 MG TABLET (FP) PO SCH (09:37)
[2019-09-05] MEDS: BUPRENORPHINE/NALOXONE 4 MG/1 MG FILM PACKET SL SCH (09:37)
[2019-09-05] MEDS: LIDOCAINE 5% TOPICAL PATCH TP SCH (09:37)
[2019-09-05] MEDS: LITHIUM CARBONATE 300 MG CAPSULE (FP) PO SCH ×2 (09:37→21:30)
[2019-09-05] MEDS: PRENATAL VITAMINS W/ FOLIC ACID TABLET (FP) PO SCH (09:37)
[2019-09-05] MEDS: FUROSEMIDE 20 MG TABLET (FP) PO SCH (09:37)
[2019-09-05] MEDS: HYDROCORTISONE 2.5% TOPICAL CREAM 30 GM TUBE RC SCH ×2 (09:38→21:32)
[2019-09-05] MEDS: NICOTINE 14 MG/24 HOURS TOPICAL PATCH TD SCH (09:38)
[2019-09-05] MEDS: NICOTINE POLACRILEX 2 MG GUM BC PRN ×2 (15:17→21:33)
[2019-09-05] MEDS: THIAMINE HCL 100 MG TABLET (FP) PO SCH (21:30)
[2019-09-05] MEDS: DOCUSATE SODIUM 100 MG CAPSULE (FP) PO SCH (21:30)
[2019-09-05] MEDS: OLANZapine 10 MG TABLET PO SCH (21:30)
[2019-09-05] MEDS: MELATONIN 5 MG TABLETS PO PRN (21:31)
[2019-09-05] MEDS: LIDOCAINE PATCH REMOVAL MC SCH (21:33)
[2019-09-06] MEDS: NICOTINE POLACRILEX 2 MG GUM BC PRN ×5 (08:07→21:38)
[2019-09-06] MEDS: HYDROCORTISONE 2.5% TOPICAL CREAM 30 GM TUBE RC SCH ×2 (10:22→21:36)
[2019-09-06] MEDS: FUROSEMIDE 20 MG TABLET (FP) PO SCH (10:23)
[2019-09-06] MEDS: PRENATAL VITAMINS W/ FOLIC ACID TABLET (FP) PO SCH (10:23)
[2019-09-06] MEDS: LITHIUM CARBONATE 300 MG CAPSULE (FP) PO SCH ×2 (10:23→21:33)
[2019-09-06] MEDS: FERROUS SO4 325 MG TABLET (FP) PO SCH (10:23)
[2019-09-06] MEDS: LIDOCAINE 5% TOPICAL PATCH TP SCH (10:24)
[2019-09-06] MEDS: BUPRENORPHINE/NALOXONE 4 MG/1 MG FILM PACKET SL SCH (10:24)
[2019-09-06] MEDS: NICOTINE 14 MG/24 HOURS TOPICAL PATCH TD SCH (10:26)
[2019-09-06] MEDS: DOCUSATE SODIUM 100 MG CAPSULE (FP) PO SCH (21:33)
[2019-09-06] MEDS: THIAMINE HCL 100 MG TABLET (FP) PO SCH (21:33)
[2019-09-06] MEDS: OLANZapine 10 MG TABLET PO SCH (21:33)
[2019-09-06] MEDS: MELATONIN 5 MG TABLETS PO PRN (21:36)
[2019-09-06] MEDS: LIDOCAINE PATCH REMOVAL MC SCH (21:37)
[2019-09-07] MEDS: HYDROCORTISONE 2.5% TOPICAL CREAM 30 GM TUBE RC SCH ×2 (09:43→21:27)
[2019-09-07] MEDS: PRENATAL VITAMINS W/ FOLIC ACID TABLET (FP) PO SCH (09:44)
[2019-09-07] MEDS: NICOTINE 14 MG/24 HOURS TOPICAL PATCH TD SCH (09:44)
[2019-09-07] MEDS: LIDOCAINE 5% TOPICAL PATCH TP SCH (09:44)
[2019-09-07] MEDS: FERROUS SO4 325 MG TABLET (FP) PO SCH (09:44)
[2019-09-07] MEDS: BUPRENORPHINE/NALOXONE 4 MG/1 MG FILM PACKET SL SCH (09:44)
[2019-09-07] MEDS: LITHIUM CARBONATE 300 MG CAPSULE (FP) PO SCH ×2 (09:44→21:25)
[2019-09-07] MEDS: FUROSEMIDE 20 MG TABLET (FP) PO SCH (09:44)
[2019-09-07] MEDS: NICOTINE POLACRILEX 2 MG GUM BC PRN ×2 (09:47→23:01)
[2019-09-07] MEDS: DOCUSATE SODIUM 100 MG CAPSULE (FP) PO SCH (21:25)
[2019-09-07] MEDS: MELATONIN 5 MG TABLETS PO PRN (21:26)
[2019-09-07] MEDS: THIAMINE HCL 100 MG TABLET (FP) PO SCH (21:26)
[2019-09-07] MEDS: OLANZapine 10 MG TABLET PO SCH (21:26)
[2019-09-07] MEDS: LIDOCAINE PATCH REMOVAL MC SCH (21:29)
[2019-09-08 09:50] LABS: HEMATOCRIT 33.6 % (35.4-49); HEMOGLOBIN 10.7 GM/dL (11.7-16.9); MCH 29.5 pg (25.7-33.7); MCHC 31.9 g/dl (32.0-35.9); MEAN CELL VOLUME 92.2 fl (80-96); MEAN PLT VOLUME 10.3 fl (7.5-11.1); PLATELET COUNT 78 K/MM3 (134-434); RBC 3.65 M/mm3 (4.00-5.60); WHITE BLOOD COUNT 3.1 K/mm3 (4.0-10.0)
[2019-09-08] MEDS: LITHIUM CARBONATE 300 MG CAPSULE (FP) PO SCH ×2 (10:22→21:26)
[2019-09-08] MEDS: FUROSEMIDE 20 MG TABLET (FP) PO SCH (10:22)
[2019-09-08] MEDS: FERROUS SO4 325 MG TABLET (FP) PO SCH ×3 (10:22→21:26)
[2019-09-08] MEDS: NICOTINE 14 MG/24 HOURS TOPICAL PATCH TD SCH (10:23)
[2019-09-08] MEDS: LIDOCAINE 5% TOPICAL PATCH TP SCH (10:23)
[2019-09-08] MEDS: PRENATAL VITAMINS W/ FOLIC ACID TABLET (FP) PO SCH (10:23)
[2019-09-08] MEDS: HYDROCORTISONE 2.5% TOPICAL CREAM 30 GM TUBE RC SCH ×2 (10:24→21:27)
[2019-09-08] MEDS: BUPRENORPHINE/NALOXONE 4 MG/1 MG FILM PACKET SL SCH (10:26)
[2019-09-08 10:27] LABS: BILIRUBIN,TOTAL 0.4 mg/dL (0.2-1); BLOOD UREA NITROGEN 18.8 mg/dL (7-18); CALCIUM 8.8 mg/dL (8.5-10.1); CREATININE 0.8 mg/dL (0.55-1.3); POTASSIUM 4.2 mmol/L (3.5-5.1); TOT PROT 6.4 g/dl (6.4-8.2)
[2019-09-08] MEDS: NICOTINE POLACRILEX 2 MG GUM BC PRN ×3 (10:27→21:29)
--- NOTE | 2019-09-08 11:54 | PN ---
[facility] Progress Note (SOAP) Subjective: Pt still c/o ankle/feet swelling. On lasix 20 mg po daily and on [place] 300 mg po BID. Current level is at a Sub-therapeutic. Pt was at [facility] july 25, 2019 to July for psych admission. As per review of pt's hospital papers; PMHx:Schizoaffective Disorder Opioid use disorder Alcohol Use disorder Rectal bleeding Hemorrhoids Alcohol Cirrhosis Thrombocytopenia Ataxic gait Sciatica Hepatitis C Chest Pain [place] Use Objective: 09/08/19 11:51 Vital Signs - 24 hr 09/08/19 09/08/19 09/08/19 00:30 03:30 07:07 Temperature 98.7 F Pulse Rate 69 Respiratory 18 16 16 Rate Blood Pressure 110/69 Laboratory Tests 08/23/19 08/23/19 08/23/19 06:00 06:00 06:00 WBC 4.7 RBC 3.89 L Hgb 11.4 L Hct 36.0 MCV 92.5 MCH 29.3 MCHC 31.7 L RDW 17.6 H Plt Count No Result Required. MPV 11.7 H Manual Slide Review Platelet Comment Slt plt clumping Sodium 139 Potassium 4.0 Chloride 106 Carbon Dioxide 26 Anion Gap 7 L BUN 15.9 Creatinine 0.8 Est GFR (CKD-EPI)AfAm 114.93 Est GFR (CKD-EPI)NonAf 99.16 POC Glucometer Random Glucose 144 H Calcium 8.5 Total Bilirubin 0.3 AST 40 H ALT 69 H Alkaline Phosphatase 69 Total Protein 6.9 Albumin 3.1 L Urine Color Urine Appearance Urine pH Ur Specific [place] Urine Protein Urine Glucose (UA) Urine Ketones Urine Blood Urine Nitrite Urine Bilirubin Urine Urobilinogen Ur Leukocyte Esterase [place] RPR Titer Nonreactive 08/24/19 08/26/19 08/26/19 16:09 08:25 08:25 WBC 3.6 L RBC 3.86 L Hgb 11.4 L Hct 35.7 MCV 92.5 MCH 29.5 MCHC 31.9 L RDW 17.3 H Plt Count No Result Required. MPV 10.9 Manual Slide Review Plts.appear adq on s Platelet Comment Slt plt clumping Sodium 141 Potassium 3.9 Chloride 108 H Carbon Dioxide 27 Anion Gap 5 L BUN 16.6 Creatinine 0.8 Est GFR (CKD-EPI)AfAm 114.93 Est GFR (CKD-EPI)NonAf 99.16 POC Glucometer Random Glucose 135 H Calcium 8.7 Total Bilirubin 0.4 AST 40 H ALT 75 H Alkaline Phosphatase 72 Total Protein 7.0 Albumin 3.2 L Urine Color Yellow Urine Appearance Clear Urine pH 6.5 Ur Specific [place] 1.021 Urine Protein Negative Urine Glucose (UA) Negative Urine Ketones Negative Urine Blood Negative Urine Nitrite Negative Urine Bilirubin Negative Urine Urobilinogen 1.0 Ur Leukocyte Esterase Negative [place] RPR Titer 08/26/19 08/27/19 08/28/19 13:30 06:45 06:28 WBC RBC Hgb Hct MCV MCH MCHC RDW Plt Count MPV Manual Slide Review Platelet Comment Sodium Potassium Chloride Carbon Dioxide Anion Gap BUN Creatinine Est GFR (CKD-EPI)AfAm Est GFR (CKD-EPI)NonAf POC Glucometer 124 88 Random Glucose Calcium Total Bilirubin AST ALT Alkaline Phosphatase Total Protein Albumin Urine Color Urine Appearance Urine pH Ur Specific [place] Urine Protein Urine Glucose (UA) Urine Ketones Urine Blood Urine Nitrite Urine Bilirubin Urine Urobilinogen Ur Leukocyte Esterase [place] 0.4 L RPR Titer 08/29/19 08/30/19 09/08/19 06:04 05:44 07:30 WBC 3.1 L RBC 3.65 L Hgb 10.7 L Hct 33.6 L MCV 92.2 MCH 29.5 MCHC 31.9 L RDW 17.0 H Plt Count 78 L D MPV 10.3 Manual Slide Review Platelet Comment Sodium Potassium Chloride Carbon Dioxide Anion Gap BUN Creatinine Est GFR (CKD-EPI)AfAm Est GFR (CKD-EPI)NonAf POC Glucometer 89 88 Random Glucose Calcium Total Bilirubin AST ALT Alkaline Phosphatase Total Protein Albumin Urine Color Urine Appearance Urine pH Ur Specific [place] Urine Protein Urine Glucose (UA) Urine Ketones Urine Blood Urine Nitrite Urine Bilirubin Urine Urobilinogen Ur Leukocyte Esterase [place] RPR Titer 09/08/19 07:30 WBC RBC Hgb Hct MCV MCH MCHC RDW Plt Count MPV Manual Slide Review Platelet Comment Sodium 140 Potassium 4.2 Chloride 107 Carbon Dioxide 30 Anion Gap 3 L BUN 18.8 H Creatinine 0.8 Est GFR (CKD-EPI)AfAm 114.93 Est GFR (CKD-EPI)NonAf 99.16 POC Glucometer Random Glucose 92 Calcium 8.8 Total Bilirubin 0.4 AST 98 H ALT 166 H Alkaline Phosphatase 67 Total Protein 6.4 Albumin 3.0 L Urine Color Urine Appearance Urine pH Ur Specific [place] Urine Protein Urine Glucose (UA) Urine Ketones Urine Blood Urine Nitrite Urine Bilirubin Urine Urobilinogen Ur Leukocyte Esterase [place] RPR Titer Hgb/Hct decreased from previous result Assessment: 09/08/19 11:52 SIM-H Anemia Chronic Peripheral edema, LE > RE Chronic Left knee pain Plan: Repeat [place] level in AM Increase Feosol to 325 mg po TID f/u with lab results Pt was referred to follow up with GI appointment on 08/22/19 @ 2pm at [address] [place] [address] ,[address], with Dr.Jan Mills [phone].
[2019-09-08] MEDS: OLANZapine 10 MG TABLET PO SCH (21:25)
[2019-09-08] MEDS: DOCUSATE SODIUM 100 MG CAPSULE (FP) PO SCH (21:25)
[2019-09-08] MEDS: THIAMINE HCL 100 MG TABLET (FP) PO SCH (21:26)
[2019-09-08] MEDS: LIDOCAINE PATCH REMOVAL MC SCH (21:26)
[2019-09-08] MEDS: MELATONIN 5 MG TABLETS PO PRN (21:27)
[2019-09-09] MEDS: FERROUS SO4 325 MG TABLET (FP) PO SCH ×3 (06:14→21:17)
[2019-09-09] MEDS: NICOTINE POLACRILEX 2 MG GUM BC PRN ×2 (06:15→21:20)
[2019-09-09] MEDS: PRENATAL VITAMINS W/ FOLIC ACID TABLET (FP) PO SCH (09:39)
[2019-09-09] MEDS: FUROSEMIDE 20 MG TABLET (FP) PO SCH (09:39)
[2019-09-09] MEDS: HYDROCORTISONE 2.5% TOPICAL CREAM 30 GM TUBE RC SCH ×2 (09:39→22:04)
[2019-09-09] MEDS: LIDOCAINE 5% TOPICAL PATCH TP SCH (09:39)
[2019-09-09] MEDS: LITHIUM CARBONATE 300 MG CAPSULE (FP) PO SCH ×2 (09:39→21:17)
[2019-09-09] MEDS: NICOTINE 14 MG/24 HOURS TOPICAL PATCH TD SCH (09:40)
[2019-09-09] MEDS: BUPRENORPHINE/NALOXONE 4 MG/1 MG FILM PACKET SL SCH (10:00)
[2019-09-09] MEDS: OLANZapine 10 MG TABLET PO SCH (21:17)
[2019-09-09] MEDS: DOCUSATE SODIUM 100 MG CAPSULE (FP) PO SCH (21:17)
[2019-09-09] MEDS: THIAMINE HCL 100 MG TABLET (FP) PO SCH (21:18)
[2019-09-09] MEDS: LIDOCAINE PATCH REMOVAL MC SCH (21:18)
[2019-09-09] MEDS: MELATONIN 5 MG TABLETS PO PRN (21:18)
[2019-09-10] MEDS: FERROUS SO4 325 MG TABLET (FP) PO SCH ×3 (06:30→22:27)
[2019-09-10] MEDS: PRENATAL VITAMINS W/ FOLIC ACID TABLET (FP) PO SCH (10:03)
[2019-09-10] MEDS: LITHIUM CARBONATE 300 MG CAPSULE (FP) PO SCH ×2 (10:03→21:14)
[2019-09-10] MEDS: FUROSEMIDE 20 MG TABLET (FP) PO SCH (10:03)
[2019-09-10] MEDS: HYDROCORTISONE 2.5% TOPICAL CREAM 30 GM TUBE RC SCH ×2 (10:04→21:15)
[2019-09-10] MEDS: NICOTINE 14 MG/24 HOURS TOPICAL PATCH TD SCH (10:04)
[2019-09-10] MEDS: LIDOCAINE 5% TOPICAL PATCH TP SCH (10:04)
[2019-09-10] MEDS: BUPRENORPHINE/NALOXONE 4 MG/1 MG FILM PACKET SL SCH (10:05)
[2019-09-10] MEDS: NICOTINE POLACRILEX 2 MG GUM BC PRN ×3 (10:06→18:44)
[2019-09-10] MEDS: OLANZapine 10 MG TABLET PO SCH (21:14)
[2019-09-10] MEDS: DOCUSATE SODIUM 100 MG CAPSULE (FP) PO SCH (21:14)
[2019-09-10] MEDS: THIAMINE HCL 100 MG TABLET (FP) PO SCH (21:14)
[2019-09-10] MEDS: MELATONIN 5 MG TABLETS PO PRN (21:16)
[2019-09-10] MEDS: LIDOCAINE PATCH REMOVAL MC SCH (22:26)
[2019-09-11] MEDS: FERROUS SO4 325 MG TABLET (FP) PO SCH ×3 (06:17→21:40)
[2019-09-11] MEDS: NICOTINE POLACRILEX 2 MG GUM BC PRN ×4 (06:19→21:44)
[2019-09-11] MEDS: LIDOCAINE 5% TOPICAL PATCH TP SCH (09:47)
[2019-09-11] MEDS: HYDROCORTISONE 2.5% TOPICAL CREAM 30 GM TUBE RC SCH ×2 (09:47→21:40)
[2019-09-11] MEDS: PRENATAL VITAMINS W/ FOLIC ACID TABLET (FP) PO SCH (09:47)
[2019-09-11] MEDS: BUPRENORPHINE/NALOXONE 4 MG/1 MG FILM PACKET SL SCH (09:47)
[2019-09-11] MEDS: FUROSEMIDE 20 MG TABLET (FP) PO SCH (09:47)
[2019-09-11] MEDS: NICOTINE 14 MG/24 HOURS TOPICAL PATCH TD SCH (09:47)
[2019-09-11] MEDS: LITHIUM CARBONATE 300 MG CAPSULE (FP) PO SCH ×2 (09:47→21:40)
[2019-09-11] MEDS: DOCUSATE SODIUM 100 MG CAPSULE (FP) PO SCH (21:40)
[2019-09-11] MEDS: OLANZapine 10 MG TABLET PO SCH (21:40)
[2019-09-11] MEDS: THIAMINE HCL 100 MG TABLET (FP) PO SCH (21:40)
[2019-09-11] MEDS: MELATONIN 5 MG TABLETS PO PRN (21:42)
[2019-09-11] MEDS: LIDOCAINE PATCH REMOVAL MC SCH (21:42)
[2019-09-12] MEDS: FERROUS SO4 325 MG TABLET (FP) PO SCH ×3 (06:02→21:18)
[2019-09-12] MEDS: NICOTINE POLACRILEX 2 MG GUM BC PRN ×4 (06:39→21:20)
[2019-09-12] MEDS: LIDOCAINE 5% TOPICAL PATCH TP SCH (10:47)
[2019-09-12] MEDS: BUPRENORPHINE/NALOXONE 4 MG/1 MG FILM PACKET SL SCH (10:48)
[2019-09-12] MEDS: PRENATAL VITAMINS W/ FOLIC ACID TABLET (FP) PO SCH (10:48)
[2019-09-12] MEDS: NICOTINE 14 MG/24 HOURS TOPICAL PATCH TD SCH (10:48)
[2019-09-12] MEDS: FUROSEMIDE 20 MG TABLET (FP) PO SCH (10:49)
[2019-09-12] MEDS: LITHIUM CARBONATE 300 MG CAPSULE (FP) PO SCH ×2 (10:49→21:18)
[2019-09-12] MEDS: HYDROCORTISONE 2.5% TOPICAL CREAM 30 GM TUBE RC SCH ×2 (10:49→21:20)
[2019-09-12] MEDS: DOCUSATE SODIUM 100 MG CAPSULE (FP) PO SCH (21:18)
[2019-09-12] MEDS: MELATONIN 5 MG TABLETS PO PRN (21:19)
[2019-09-12] MEDS: THIAMINE HCL 100 MG TABLET (FP) PO SCH (21:19)
[2019-09-12] MEDS: OLANZapine 10 MG TABLET PO SCH (21:19)
[2019-09-12] MEDS: LIDOCAINE PATCH REMOVAL MC SCH (21:20)
[2019-09-13] MEDS: FERROUS SO4 325 MG TABLET (FP) PO SCH ×3 (06:21→21:20)
[2019-09-13] MEDS: FUROSEMIDE 20 MG TABLET (FP) PO SCH (10:19)
[2019-09-13] MEDS: PRENATAL VITAMINS W/ FOLIC ACID TABLET (FP) PO SCH (10:19)
[2019-09-13] MEDS: LITHIUM CARBONATE 300 MG CAPSULE (FP) PO SCH ×2 (10:19→21:20)
[2019-09-13] MEDS: NICOTINE 14 MG/24 HOURS TOPICAL PATCH TD SCH (10:20)
[2019-09-13] MEDS: HYDROCORTISONE 2.5% TOPICAL CREAM 30 GM TUBE RC SCH ×2 (10:20→21:22)
[2019-09-13] MEDS: LIDOCAINE 5% TOPICAL PATCH TP SCH (10:20)
[2019-09-13] MEDS: NICOTINE POLACRILEX 2 MG GUM BC PRN ×3 (10:21→21:21)
[2019-09-13] MEDS ORDERED: BUPRENORPHINE/NALOXONE 4 MG/1 MG FILM PACKET SL ONE (10:45)
[2019-09-13] MEDS: MELATONIN 5 MG TABLETS PO PRN (21:20)
[2019-09-13] MEDS: DOCUSATE SODIUM 100 MG CAPSULE (FP) PO SCH (21:20)
[2019-09-13] MEDS: THIAMINE HCL 100 MG TABLET (FP) PO SCH (21:20)
[2019-09-13] MEDS: OLANZapine 10 MG TABLET PO SCH (21:20)
[2019-09-13] MEDS: LIDOCAINE PATCH REMOVAL MC SCH (21:22)
[2019-09-14] MEDS: FERROUS SO4 325 MG TABLET (FP) PO SCH ×3 (06:04→21:40)
[2019-09-14] MEDS: BUPRENORPHINE/NALOXONE 4 MG/1 MG FILM PACKET SL SCH (09:47)
[2019-09-14] MEDS: PRENATAL VITAMINS W/ FOLIC ACID TABLET (FP) PO SCH (09:47)
[2019-09-14] MEDS: LITHIUM CARBONATE 300 MG CAPSULE (FP) PO SCH ×2 (09:47→21:40)
[2019-09-14] MEDS: FUROSEMIDE 20 MG TABLET (FP) PO SCH (09:47)
[2019-09-14] MEDS: HYDROCORTISONE 2.5% TOPICAL CREAM 30 GM TUBE RC SCH ×2 (09:51→21:41)
[2019-09-14] MEDS: NICOTINE 14 MG/24 HOURS TOPICAL PATCH TD SCH (09:51)
[2019-09-14] MEDS: LIDOCAINE 5% TOPICAL PATCH TP SCH (09:51)
[2019-09-14] MEDS: NICOTINE POLACRILEX 2 MG GUM BC PRN ×3 (09:53→23:00)
--- NOTE | 2019-09-14 09:58 | PN ---
S Progress Note (SOAP) Subjective: Pt c/o redness to right eye on awakening. Denies pain,swelling or pus-like discharge. Objective: 09/14/19 09:55 Vital Signs - 24 hr 09/13/19 09/14/19 09/14/19 10:00 00:30 03:30 Temperature Pulse Rate 79 Respiratory 18 17 Rate Blood Pressure 119/68 09/14/19 06:30 Temperature 98.1 F Pulse Rate 58 L Respiratory 18 Rate Blood Pressure 114/69 Alert o x 3 nad oob ambulating with steady gait Eyes:Jaelyn,eomi,no swelling or discharge, bilaterally. Right eye with Conjuctival redness concentrated on lower region. no pain Assessment: 09/14/19 13:10 Subconjuctival Hemorrhage of right eye Plan: Artificial Tears instil 1 drop to each eye TID d/w pt will resolve in one to two weeks.
[2019-09-14] MEDS: ARTIFICIAL TEARS (POLYVINYL ALCOHOL) OPTH DROPS OU SCH ×2 (14:18→21:41)
[2019-09-14] MEDS: THIAMINE HCL 100 MG TABLET (FP) PO SCH (21:40)
[2019-09-14] MEDS: OLANZapine 10 MG TABLET PO SCH (21:40)
[2019-09-14] MEDS: MELATONIN 5 MG TABLETS PO PRN (21:40)
[2019-09-14] MEDS: DOCUSATE SODIUM 100 MG CAPSULE (FP) PO SCH (21:40)
[2019-09-14] MEDS: LIDOCAINE PATCH REMOVAL MC SCH (21:43)
[2019-09-15] MEDS: FERROUS SO4 325 MG TABLET (FP) PO SCH ×3 (06:27→21:33)
[2019-09-15] MEDS: ARTIFICIAL TEARS (POLYVINYL ALCOHOL) OPTH DROPS OU SCH ×3 (06:28→21:33)
[2019-09-15] MEDS: NICOTINE POLACRILEX 2 MG GUM BC PRN ×4 (07:50→21:34)
[2019-09-15] MEDS: NICOTINE 14 MG/24 HOURS TOPICAL PATCH TD SCH (10:18)
[2019-09-15] MEDS: FUROSEMIDE 20 MG TABLET (FP) PO SCH (10:18)
[2019-09-15] MEDS: PRENATAL VITAMINS W/ FOLIC ACID TABLET (FP) PO SCH (10:18)
[2019-09-15] MEDS: LITHIUM CARBONATE 300 MG CAPSULE (FP) PO SCH ×2 (10:18→21:33)
[2019-09-15] MEDS: HYDROCORTISONE 2.5% TOPICAL CREAM 30 GM TUBE RC SCH ×2 (10:19→22:41)
[2019-09-15] MEDS: LIDOCAINE 5% TOPICAL PATCH TP SCH (10:19)
[2019-09-15] MEDS: BUPRENORPHINE/NALOXONE 4 MG/1 MG FILM PACKET SL SCH (10:21)
[2019-09-15 11:58] LABS: HEMATOCRIT 33.3 % (35.4-49); HEMOGLOBIN 10.7 GM/dL (11.7-16.9); MCH 29.8 pg (25.7-33.7); MCHC 32.2 g/dl (32.0-35.9); MEAN CELL VOLUME 92.6 fl (80-96); MEAN PLT VOLUME 9.7 fl (7.5-11.1); PLATELET COUNT 72 K/MM3 (134-434); RDW 17.4 % (11.9-15.9); WHITE BLOOD COUNT 3.1 K/mm3 (4.0-10.0)
[2019-09-15 12:38] LABS: ALBUMIN 3.1 g/dl (3.4-5.0); BILIRUBIN,TOTAL 0.6 mg/dL (0.2-1); BLOOD UREA NITROGEN 15.7 mg/dL (7-18); CALCIUM 8.8 mg/dL (8.5-10.1); CREATININE 0.9 mg/dL (0.55-1.3); TOT PROT 6.6 g/dl (6.4-8.2)
[2019-09-15 13:11] LABS: ANISOCYTOSIS 1+; MACROCYTOSIS 0; PLATELET ESTIMATE DECREASED
[2019-09-15] MEDS: OLANZapine 10 MG TABLET PO SCH (21:33)
[2019-09-15] MEDS: MELATONIN 5 MG TABLETS PO PRN (21:34)
[2019-09-15] MEDS: THIAMINE HCL 100 MG TABLET (FP) PO SCH (21:34)
[2019-09-15] MEDS: DOCUSATE SODIUM 100 MG CAPSULE (FP) PO SCH (21:34)
[2019-09-15] MEDS: LIDOCAINE PATCH REMOVAL MC SCH (22:43)
[2019-09-16] MEDS: FERROUS SO4 325 MG TABLET (FP) PO SCH ×3 (06:16→21:25)
[2019-09-16] MEDS: ARTIFICIAL TEARS (POLYVINYL ALCOHOL) OPTH DROPS OU SCH ×3 (06:17→21:25)
[2019-09-16] MEDS: NICOTINE POLACRILEX 2 MG GUM BC PRN ×3 (06:17→21:26)
[2019-09-16] MEDS: LIDOCAINE 5% TOPICAL PATCH TP SCH (10:12)
[2019-09-16] MEDS: NICOTINE 14 MG/24 HOURS TOPICAL PATCH TD SCH (10:12)
[2019-09-16] MEDS: FUROSEMIDE 20 MG TABLET (FP) PO SCH (10:12)
[2019-09-16] MEDS: LITHIUM CARBONATE 300 MG CAPSULE (FP) PO SCH ×2 (10:12→21:25)
[2019-09-16] MEDS: HYDROCORTISONE 2.5% TOPICAL CREAM 30 GM TUBE RC SCH ×2 (10:12→21:25)
[2019-09-16] MEDS: PRENATAL VITAMINS W/ FOLIC ACID TABLET (FP) PO SCH (10:12)
[2019-09-16] MEDS: BUPRENORPHINE/NALOXONE 4 MG/1 MG FILM PACKET SL SCH (10:14)
[2019-09-16] MEDS: DOCUSATE SODIUM 100 MG CAPSULE (FP) PO SCH (21:24)
[2019-09-16] MEDS: THIAMINE HCL 100 MG TABLET (FP) PO SCH (21:26)
[2019-09-16] MEDS: OLANZapine 10 MG TABLET PO SCH (21:26)
[2019-09-16] MEDS: LIDOCAINE PATCH REMOVAL MC SCH (21:26)
[2019-09-16] MEDS: MELATONIN 5 MG TABLETS PO PRN (21:26)
[2019-09-17] MEDS: FERROUS SO4 325 MG TABLET (FP) PO SCH ×3 (06:05→21:22)
[2019-09-17] MEDS: ARTIFICIAL TEARS (POLYVINYL ALCOHOL) OPTH DROPS OU SCH ×3 (06:05→21:24)
[2019-09-17] MEDS: NICOTINE POLACRILEX 2 MG GUM BC PRN ×4 (06:06→19:40)
[2019-09-17] MEDS: HYDROCORTISONE 2.5% TOPICAL CREAM 30 GM TUBE RC SCH ×2 (09:58→21:23)
[2019-09-17] MEDS: PRENATAL VITAMINS W/ FOLIC ACID TABLET (FP) PO SCH (09:58)
[2019-09-17] MEDS: LIDOCAINE 5% TOPICAL PATCH TP SCH (09:58)
[2019-09-17] MEDS: FUROSEMIDE 20 MG TABLET (FP) PO SCH (09:58)
[2019-09-17] MEDS: LITHIUM CARBONATE 300 MG CAPSULE (FP) PO SCH ×2 (09:58→21:22)
[2019-09-17] MEDS: BUPRENORPHINE/NALOXONE 4 MG/1 MG FILM PACKET SL SCH (09:58)
[2019-09-17] MEDS: NICOTINE 14 MG/24 HOURS TOPICAL PATCH TD SCH (09:59)
[2019-09-17] MEDS: MELATONIN 5 MG TABLETS PO PRN (21:22)
[2019-09-17] MEDS: DOCUSATE SODIUM 100 MG CAPSULE (FP) PO SCH (21:22)
[2019-09-17] MEDS: THIAMINE HCL 100 MG TABLET (FP) PO SCH (21:22)
[2019-09-17] MEDS: OLANZapine 10 MG TABLET PO SCH (21:22)
[2019-09-17] MEDS: LIDOCAINE PATCH REMOVAL MC SCH (21:23)
[2019-09-18] MEDS: ARTIFICIAL TEARS (POLYVINYL ALCOHOL) OPTH DROPS OU SCH ×3 (06:11→21:27)
[2019-09-18] MEDS: FERROUS SO4 325 MG TABLET (FP) PO SCH ×3 (06:11→21:26)
[2019-09-18] MEDS: LITHIUM CARBONATE 300 MG CAPSULE (FP) PO SCH ×2 (09:58→21:27)
[2019-09-18] MEDS: LIDOCAINE 5% TOPICAL PATCH TP SCH (09:59)
[2019-09-18] MEDS: FUROSEMIDE 20 MG TABLET (FP) PO SCH (09:59)
[2019-09-18] MEDS: PRENATAL VITAMINS W/ FOLIC ACID TABLET (FP) PO SCH (09:59)
[2019-09-18] MEDS: NICOTINE 14 MG/24 HOURS TOPICAL PATCH TD SCH (09:59)
[2019-09-18] MEDS: HYDROCORTISONE 2.5% TOPICAL CREAM 30 GM TUBE RC SCH ×2 (09:59→21:28)
[2019-09-18] MEDS: BUPRENORPHINE/NALOXONE 4 MG/1 MG FILM PACKET SL SCH (10:00)
[2019-09-18] MEDS: NICOTINE POLACRILEX 2 MG GUM BC PRN ×3 (10:03→21:26)
[2019-09-18] MEDS: DOCUSATE SODIUM 100 MG CAPSULE (FP) PO SCH (21:26)
[2019-09-18] MEDS: THIAMINE HCL 100 MG TABLET (FP) PO SCH (21:27)
[2019-09-18] MEDS: MELATONIN 5 MG TABLETS PO PRN (21:27)
[2019-09-18] MEDS: OLANZapine 10 MG TABLET PO SCH (21:27)
[2019-09-18] MEDS: LIDOCAINE PATCH REMOVAL MC SCH (21:32)
[2019-09-19] MEDS: FERROUS SO4 325 MG TABLET (FP) PO SCH ×3 (06:15→21:20)
[2019-09-19] MEDS: ARTIFICIAL TEARS (POLYVINYL ALCOHOL) OPTH DROPS OU SCH ×3 (06:16→21:20)
[2019-09-19] MEDS: NICOTINE POLACRILEX 2 MG GUM BC PRN ×4 (09:31→21:39)
[2019-09-19] MEDS: BUPRENORPHINE/NALOXONE 4 MG/1 MG FILM PACKET SL SCH (10:14)
[2019-09-19] MEDS: LIDOCAINE 5% TOPICAL PATCH TP SCH (10:14)
[2019-09-19] MEDS: LITHIUM CARBONATE 300 MG CAPSULE (FP) PO SCH ×2 (10:14→21:20)
[2019-09-19] MEDS: PRENATAL VITAMINS W/ FOLIC ACID TABLET (FP) PO SCH (10:14)
[2019-09-19] MEDS: NICOTINE 14 MG/24 HOURS TOPICAL PATCH TD SCH (10:14)
[2019-09-19] MEDS: FUROSEMIDE 20 MG TABLET (FP) PO SCH (10:14)
[2019-09-19] MEDS: HYDROCORTISONE 2.5% TOPICAL CREAM 30 GM TUBE RC SCH ×2 (10:15→21:20)
--- NOTE | 2019-09-19 10:29 | DS ---
[facility] Rehab Discharge Summary - [facility] Rehab Discharge Summary Admission Date: 08/23/19 Discharge Date: 09/20/19 - History Present History: Alcohol dependence, Cannabis dependence, Cocaine dependence, Opioid dependence Additional Comments: Pt is a 59 y/o male with a hx ofl SIM admitted to rehab and scheduled to discharge on 09/20/19. Pt met with his counselor Ms Herlinda Woodruff and pt has been referred to [facility]. [facility] [employer] for CD aftercare/ Suboxone MAT. Pt has referral to follow up with Medical at [facility], [address] [place] [address]. Pertinent Past History: Bleeding Hemorrhoids repair of tendon of left thumb in 2009 unable to do flexion of left thumb Chronic Back Pain Chronic lower leg/ankle edema, Bipolar Disorder Use of Cane for Ambulation - Discharge Physical Exam Vital Signs: Vital Signs Temperature 98.2 F 09/19/19 07:16 Pulse Rate 75 09/19/19 07:16 Respiratory Rate 18 09/19/19 07:16 Blood Pressure 118/68 09/19/19 07:16 O2 Sat by Pulse Oximetry (%) Alert o x 3,denies s/h/i nad oob ambulating with steady gait with a can cardiac:s1 s2,rrr lungs:cta,ivy. abdomen:soft,+bs,nt,nd extremities/skin:slight ankle edema,unchanged;skin intact. Pertinent Admission Physical Exam Findings: Laboratory Tests 08/23/19 08/23/19 08/23/19 06:00 06:00 06:00 WBC 4.7 RBC 3.89 L Hgb 11.4 L Hct 36.0 MCV 92.5 MCH 29.3 MCHC 31.7 L RDW 17.6 H Plt Count No Result Required. MPV 11.7 H Neutrophils % Neutrophils % (Manual) Band Neutrophils % Lymphocytes % Lymphocytes % (Manual) Monocytes % (Manual) Eosinophils % (Manual) Basophils % (Manual) Myelocytes % (Man) Promyelocytes % (Man) Blast Cells % (Manual) Nucleated RBC % Metamyelocytes Manual Slide Review Hypochromia Platelet Estimate Platelet Comment Slt plt clumping Polychromasia Poikilocytosis Anisocytosis Microcytosis Macrocytosis Sodium 139 Potassium 4.0 Chloride 106 Carbon Dioxide 26 Anion Gap 7 L BUN 15.9 Creatinine 0.8 Est GFR (CKD-EPI)AfAm 114.93 Est GFR (CKD-EPI)NonAf 99.16 POC Glucometer Random Glucose 144 H Calcium 8.5 Total Bilirubin 0.3 AST 40 H ALT 69 H Alkaline Phosphatase 69 Total Protein 6.9 Albumin 3.1 L Urine Color Urine Appearance Urine pH Ur Specific [place] Urine Protein Urine Glucose (UA) Urine Ketones Urine Blood Urine Nitrite Urine Bilirubin Urine Urobilinogen Ur Leukocyte Esterase Snook RPR Titer Nonreactive 08/24/19 08/26/19 08/26/19 16:09 08:25 08:25 WBC 3.6 L RBC 3.86 L Hgb 11.4 L Hct 35.7 MCV 92.5 MCH 29.5 MCHC 31.9 L RDW 17.3 H Plt Count No Result Required. MPV 10.9 Neutrophils % Neutrophils % (Manual) Band Neutrophils % Lymphocytes % Lymphocytes % (Manual) Monocytes % (Manual) Eosinophils % (Manual) Basophils % (Manual) Myelocytes % (Man) Promyelocytes % (Man) Blast Cells % (Manual) Nucleated RBC % Metamyelocytes Manual Slide Review Plts.appear adq on s Hypochromia Platelet Estimate Platelet Comment Slt plt clumping Polychromasia Poikilocytosis Anisocytosis Microcytosis Macrocytosis Sodium 141 Potassium 3.9 Chloride 108 H Carbon Dioxide 27 Anion Gap 5 L BUN 16.6 Creatinine 0.8 Est GFR (CKD-EPI)AfAm 114.93 Est GFR (CKD-EPI)NonAf 99.16 POC Glucometer Random Glucose 135 H Calcium 8.7 Total Bilirubin 0.4 AST 40 H ALT 75 H Alkaline Phosphatase 72 Total Protein 7.0 Albumin 3.2 L Urine Color Yellow Urine Appearance Clear Urine pH 6.5 Ur Specific [place] 1.021 Urine Protein Negative Urine Glucose (UA) Negative Urine Ketones Negative Urine Blood Negative Urine Nitrite Negative Urine Bilirubin Negative Urine Urobilinogen 1.0 Ur Leukocyte Esterase Negative Snook RPR Titer 08/26/19 08/27/19 08/28/19 13:30 06:45 06:28 WBC RBC Hgb Hct MCV MCH MCHC RDW Plt Count MPV Neutrophils % Neutrophils % (Manual) Band Neutrophils % Lymphocytes % Lymphocytes % (Manual) Monocytes % (Manual) Eosinophils % (Manual) Basophils % (Manual) Myelocytes % (Man) Promyelocytes % (Man) Blast Cells % (Manual) Nucleated RBC % Metamyelocytes Manual Slide Review Hypochromia Platelet Estimate Platelet Comment Polychromasia Poikilocytosis Anisocytosis Microcytosis Macrocytosis Sodium Potassium Chloride Carbon Dioxide Anion Gap BUN Creatinine Est GFR (CKD-EPI)AfAm Est GFR (CKD-EPI)NonAf POC Glucometer 124 88 Random Glucose Calcium Total Bilirubin AST ALT Alkaline Phosphatase Total Protein Albumin Urine Color Urine Appearance Urine pH Ur Specific [place] Urine Protein Urine Glucose (UA) Urine Ketones Urine Blood Urine Nitrite Urine Bilirubin Urine Urobilinogen Ur Leukocyte Esterase Snook 0.4 L RPR Titer 08/29/19 08/30/19 09/08/19 06:04 05:44 07:30 WBC 3.1 L RBC 3.65 L Hgb 10.7 L Hct 33.6 L MCV 92.2 MCH 29.5 MCHC 31.9 L RDW 17.0 H Plt Count 78 L D MPV 10.3 Neutrophils % Neutrophils % (Manual) Band Neutrophils % Lymphocytes % Lymphocytes % (Manual) Monocytes % (Manual) Eosinophils % (Manual) Basophils % (Manual) Myelocytes % (Man) Promyelocytes % (Man) Blast Cells % (Manual) Nucleated RBC % Metamyelocytes Manual Slide Review Hypochromia Platelet Estimate Platelet Comment Polychromasia Poikilocytosis Anisocytosis Microcytosis Macrocytosis Sodium Potassium Chloride Carbon Dioxide Anion Gap BUN Creatinine Est GFR (CKD-EPI)AfAm Est GFR (CKD-EPI)NonAf POC Glucometer 89 88 Random Glucose Calcium Total Bilirubin AST ALT Alkaline Phosphatase Total Protein Albumin Urine Color Urine Appearance Urine pH Ur Specific [place] Urine Protein Urine Glucose (UA) Urine Ketones Urine Blood Urine Nitrite Urine Bilirubin Urine Urobilinogen Ur Leukocyte Esterase Snook RPR Titer 09/08/19 09/09/19 09/15/19 07:30 07:50 08:10 WBC 3.1 L RBC 3.60 L Hgb 10.7 L Hct 33.3 L MCV 92.6 MCH 29.8 MCHC 32.2 RDW 17.4 H Plt Count 72 L MPV 9.7 Neutrophils % No Result Required. Neutrophils % (Manual) 36.6 L Band Neutrophils % 0.0 Lymphocytes % No Result Required. Lymphocytes % (Manual) 34.7 Monocytes % (Manual) 8 Eosinophils % (Manual) 5.9 H Basophils % (Manual) 0.0 Myelocytes % (Man) 0 Promyelocytes % (Man) 1 Blast Cells % (Manual) 0 Nucleated RBC % 0 Metamyelocytes 0 Manual Slide Review Hypochromia 1+ Platelet Estimate Decreased Platelet Comment Present Polychromasia 1+ Poikilocytosis 0 Anisocytosis 1+ Microcytosis 1+ Macrocytosis 0 Sodium 140 Potassium 4.2 Chloride 107 Carbon Dioxide 30 Anion Gap 3 L BUN 18.8 H Creatinine 0.8 Est GFR (CKD-EPI)AfAm 114.93 Est GFR (CKD-EPI)NonAf 99.16 POC Glucometer Random Glucose 92 Calcium 8.8 Total Bilirubin 0.4 AST 98 H ALT 166 H Alkaline Phosphatase 67 Total Protein 6.4 Albumin 3.0 L Urine Color Urine Appearance Urine pH Ur Specific [place] Urine Protein Urine Glucose (UA) Urine Ketones Urine Blood Urine Nitrite Urine Bilirubin Urine Urobilinogen Ur Leukocyte Esterase Snook 0.4 L RPR Titer 09/15/19 08:10 WBC RBC Hgb Hct MCV MCH MCHC RDW Plt Count MPV Neutrophils % Neutrophils % (Manual) Band Neutrophils % Lymphocytes % Lymphocytes % (Manual) Monocytes % (Manual) Eosinophils % (Manual) Basophils % (Manual) Myelocytes % (Man) Promyelocytes % (Man) Blast Cells % (Manual) Nucleated RBC % Metamyelocytes Manual Slide Review Hypochromia Platelet Estimate Platelet Comment Polychromasia Poikilocytosis Anisocytosis Microcytosis Macrocytosis Sodium 140 Potassium 4.0 Chloride 106 Carbon Dioxide 28 Anion Gap 6 L BUN 15.7 Creatinine 0.9 Est GFR (CKD-EPI)AfAm 109.50 Est GFR (CKD-EPI)NonAf 94.48 POC Glucometer Random Glucose 138 H Calcium 8.8 Total Bilirubin 0.6 AST 122 H ALT 204 H Alkaline Phosphatase 69 Total Protein 6.6 Albumin 3.1 L Urine Color Urine Appearance Urine pH Ur Specific [place] Urine Protein Urine Glucose (UA) Urine Ketones Urine Blood Urine Nitrite Urine Bilirubin Urine Urobilinogen Ur Leukocyte Esterase Snook RPR Titer - Treatment Discharge Condition: Discharge condition good Hospital Course: Rehabilitate safely and responded well CD aftercare referral accepted attended groups and individual sessions as tolerated - Medication Discharge Medications: Ambulatory Orders Buprenorphine HCl/Naloxone HCl [Buprenorp-Nalox 4-1 mg Sl Film] 1 each SL DAILY 08/23/19 Docusate Sodium [Colace -] 300 mg PO HS 08/23/19 Furosemide [Lasix -] 20 mg PO DAILY 08/23/19 Hydrocortisone 2.5% Topical Cr [Anusol 2.5% Hc Cream -] 1 applic RC BID Melatonin/Pyridoxine HCl (B6) [Melatonin 3 mg Tablet] 1 each PO HS 08/23/19 Phenylephrine HCl/Witch Ying [Preparation H Cooling Gel] 51 gm TP HS 08/23/19 RX: Hydroxyzine HCl 25 mg PO DAILY 08/23/19 RX: Snook Carbonate [Eskalith -] 300 mg PO BID #60 capsule 09/19/19 RX: Olanzapine [ZyPREXA -] 10 mg PO HS #30 tablet 09/19/19 - Medication-Assisted Treatment (MAT) Medication-Assisted Treatment (MAT): Yes Medication Prescribed: Suboxone MAT Follow-up Referral: [facility] Suboxone MAT program - Discharge Instructions Diet, activity, other medical instructions: Diet:MADAY Activity: oob ad park with cane Other medical instructions:follow up with CD aftercare recommendations as scheduled. Follow up with primary care provider at [facility] as scheduled. follow up and reschedule GI Clinic Re:Liver/Hemorrhoids as scheduled by [facility] - Diagnosis (1) Alcohol dependence Status: Chronic Qualifiers: Substance use status: uncomplicated Qualified Code(s): F10.20 - Alcohol dependence, uncomplicated (2) Subconjunctival hemorrhage of right eye Status: Acute (3) Hx of hemorrhoids Status: Chronic (4) Peripheral edema Status: Chronic (5) Cannabis dependence Status: Chronic (6) No natural teeth Status: Chronic (7) Encounter for monitoring Suboxone maintenance therapy Status: Chronic (8) Hepatitis C Status: Chronic Qualifiers: Viral hepatitis chronicity: unspecified Hepatic coma status: without hepatic coma Qualified Code(s): B19.20 - Unspecified viral hepatitis C without hepatic coma (9) Nicotine dependence Status: Chronic Qualifiers: Nicotine product type: cigarettes Substance use status: uncomplicated Qualified Code(s): F17.210 - Nicotine dependence, cigarettes, uncomplicated (10) Opioid dependence Status: Chronic (11) Sciatica Status: Chronic Qualifiers: Laterality: unspecified laterality Qualified Code(s): M54.30 - Sciatica, unspecified side (12) Use of cane as ambulatory aid Status: Chronic (13) s/p repair laceration of flexor tendon left thumb unable to Status: Chronic (14) Chronic lower back pain Status: Chronic Qualifiers: Back pain laterality: unspecified - Follow-up Referral Minutes to complete discharge: 30 - AMA Did Patient Leave Against Medical Advice: No Additional Comments: On admission to rehab, Pt reported he was discharged from [facility] before coming here and he brought all his medications with him including Suboxone Rx which he picked up a day before arrival to [facility] and "has not touched it yet".
--- NOTE | 2019-09-19 10:39 | PN ---
[facility] Progress Note Note: Patient is scheduled for discharge tomorrow. Scripts for 30 days Supply of medications(Lee Mont 300 mg/bid, Zyprexa 10 mg/hs) will be electronically transmitted to [facility] at [address] [place], [place] [id number]
[2019-09-19] MEDS: OLANZapine 10 MG TABLET PO SCH (21:20)
[2019-09-19] MEDS: THIAMINE HCL 100 MG TABLET (FP) PO SCH (21:20)
[2019-09-19] MEDS: DOCUSATE SODIUM 100 MG CAPSULE (FP) PO SCH (21:20)
[2019-09-19] MEDS: MELATONIN 5 MG TABLETS PO PRN (21:21)
[2019-09-19] MEDS: LIDOCAINE PATCH REMOVAL MC SCH (21:52)
[2019-09-20] MEDS: FERROUS SO4 325 MG TABLET (FP) PO SCH (06:07)
[2019-09-20] MEDS: ARTIFICIAL TEARS (POLYVINYL ALCOHOL) OPTH DROPS OU SCH (06:08)
[2019-09-20 07:18] VITALS: BP 104/71; PULSE 66; TEMP 97.8
[2019-09-20] MEDS: FUROSEMIDE 20 MG TABLET (FP) PO SCH (09:05)
[2019-09-20] MEDS: LITHIUM CARBONATE 300 MG CAPSULE (FP) PO SCH (09:05)
[2019-09-20] MEDS: LIDOCAINE 5% TOPICAL PATCH TP SCH (09:06)
[2019-09-20] MEDS: HYDROCORTISONE 2.5% TOPICAL CREAM 30 GM TUBE RC SCH (09:06)
[2019-09-20] MEDS: PRENATAL VITAMINS W/ FOLIC ACID TABLET (FP) PO SCH (09:06)
[2019-09-20] MEDS: NICOTINE 14 MG/24 HOURS TOPICAL PATCH TD SCH (09:07)
[2019-09-20] MEDS: NICOTINE POLACRILEX 2 MG GUM BC PRN (09:07)
--- NOTE | 2019-09-20 10:00 | PN ---
[facility] Progress Note Note: Pt is discharged today as scheduled. Last suboxone dose to be given at 10:00 A.M on the unit before discharge. Pt reports he has all his medications brought with him on admission here after discharge from [facility] in his [place] including suboxone. No need for courtesy Rx. Vital Signs - 24 hr 09/19/19 09/20/19 09/20/19 10:00 00:30 03:30 Temperature Pulse Rate 74 Respiratory 20 20 Rate Blood Pressure 116/69 09/20/19 07:17 Temperature 97.8 F Pulse Rate 66 Respiratory 20 Rate Blood Pressure 104/71 Alert o x 3 nad oob ambulating with steady gait with cane A/P Medically stable D/C pt today Follow up with CD aftercare and primary care provider as discussed and scheduled.
[2019-09-20] MEDS ORDERED: BUPRENORPHINE/NALOXONE 4 MG/1 MG FILM PACKET SL ONE (10:15)
== END 2019-09-20 10:00 | disposition home or self-care (01) | DRG 772 ==
LOC: YASAS 13:56 → Y5N 19:26
PROVIDERS: ADMIT Allergy & Immunology; ATTEND Allergy & Immunology
PROC: HZ42ZZZ Group Counseling for Substance Abuse Treatment, Cognitive-Behavioral (ICD-10-PCS; principal; 2019-08-23)
DX: F10.20 Alcohol dependence, uncomplicated (principal); F11.20 Opioid dependence, uncomplicated; F14.20 Cocaine dependence, uncomplicated; F12.20 Cannabis dependence, uncomplicated; F17.210 Nicotine dependence, cigarettes, uncomplicated; F19.282 Other psychoactive substance dependence with psychoactive substance-induced sleep disorder; F25.9 Schizoaffective disorder, unspecified; F31.9 Bipolar disorder, unspecified; D69.6 Thrombocytopenia, unspecified; D64.9 Anemia, unspecified; K70.30 Alcoholic cirrhosis of liver without ascites; H11.31 Conjunctival hemorrhage, right eye; B18.2 Chronic viral hepatitis C; M25.562 Pain in left knee; M54.5 Low back pain; M54.30 Sciatica, unspecified side; R60.0 Localized edema; K00.0 Anodontia; Z86.19 Personal history of other infectious and parasitic diseases; Z51.81 Encounter for therapeutic drug level monitoring; Z99.89 Dependence on other enabling machines and devices; Z56.0 Unemployment, unspecified; Z59.0 Homelessness
CPT/HCPCS: 36415; 80053; 80178; 81003; 82962; 85025; 85027; 86593